=== PATIENT | female | born 1955 | race Caucasian/White ===

== ENCOUNTER → 2021-09-14 09:35 | Outpatient (BNVA) | payer MEDICARE, SELFPAY | PROVIDERS: PCP Registered Nurse; Visit Provider Surgery Vascular Surgery | DX: I65.22 Occlusion and stenosis of left carotid artery (principal) | CPT/HCPCS: 99202 ==

== ENCOUNTER → 2021-09-17 08:22 | Outpatient (BNVA) | payer MEDICARE, SELFPAY | PROVIDERS: PCP Registered Nurse; Visit Provider Internal Medicine | DX: Z01.810 Encounter for preprocedural cardiovascular examination (principal); I65.22 Occlusion and stenosis of left carotid artery; I10 Essential (primary) hypertension | CPT/HCPCS: 93005; 99202 ==

== ENCOUNTER → 2021-10-14 09:59 | Outpatient (REF) | payer MEDICARE, SELFPAY ==
--- NOTE | ~2021-10-14 | NM_ITS ---
EXERCISE MYOCARDIAL PERFUSION STUDY INDICATION: Preoperative cardiac evaluation TECHNIQUE: The patient was brought in for an exercise perfusion study on 10/14/2021. Patient performed exercise as per Dinesh protocol and was injected 25 mCi of sestamibi once target heart rate was achieved. Images were obtained using the SPECT gamma camera interlaced with the gating device. Images were obtained in supine position. Resting perfusion study was performed on 10/15/2021. Patient was administered 25 mCi of sestamibi intravenously at rest. Images were then obtained in supine position. Total DLP 78mGy-cm. Images were processed with the software and compared side to side in short axis, horizontal long axis and vertical long axis views. FINDINGS: Raw images were reviewed. The stress perfusion study showed no significant perfusion abnormality. Both uncorrected as well as CT attenuation corrected images were reviewed. The gated study shows reduced LV systolic function with calculated LVEF of 45%, but visually appears normal. LV cavity is normal in size. The gated study shows normal wall thickening and contraction of segments. Resting study shows no significant perfusion abnormality. Gating at rest reveals normal wall motion with ejection fraction at 52%. The findings are consistent with no reversible or fixed perfusion defects. MS/MS cardiolite stress test IMPRESSION: 1. Myocardial perfusion imaging study shows normal myocardial perfusion. 2. Gated LVEF is 45% during stress and 52% during rest but visually appears normal. Correlate with echocardiogram.. 3. Transient ischemic dilatation not present. EKG component of the test reported separately.
--- NOTE | 2021-10-14 10:04 | CA_ITS ---
Acquisition Time: 2021-10-14 10:16:58 Total Exercise Time: 00:05:07 Test Indications: PREOP Medications: SEE CHART Protocol: LIBORIO Max HR: 171 BPM 111% of Pred: 154 BPM Max BP: 210/100 mmHG Max Work Load: 4.6 METS Exercise stress test with exercise 5 min 7 sec of Liborio stage 1, acheving 105% MPHR and 4.3 METS, without anginal symptoms, with isolated PAC and PVC, with brisk chronotropic and hypertensive response to exercise with max BP 210/100, without EKG changes meeting criteria for ischemia at peak exercise, with nonspecfic ST abnormality noted in recovery. In recovery BP gradually improved to baseline. She had not taken her morning Lisinopril and was then given her Lisinopril 10mg po. She was recovered for 15 min and BP down to 168/94, asymptomatic. Nuclear images pending. Test reviewed with Dr Weems. Referred By: Dmitry Fenton Overread By: TERA RUIZ
== END ==
LOC: HO.CARD 09:59
PROVIDERS: Visit Provider Internal Medicine
DX: Z01.810 Encounter for preprocedural cardiovascular examination (principal)
CPT/HCPCS: 78452; 93017; A9500

== ENCOUNTER 2021-10-19 06:04 | Inpatient (IN) | payer MEDICARE, SELFPAY ==
[2021-10-13 13:16] VITALS: BP 161/82; PULSE 98; RESP 16; O2SAT 94; BMI 22.3
--- NOTE | 2021-10-13 13:28 | HO.ANESPROP2 ---
Documented by User: Ansley Rubi NP 10/13/21 14:27 HPI - Anesthesia Eval Consult details Narrative: 66yo F for Left Carotid Endarterectomy Stress test pending Cardiac clearance pending Daily ETOH: 1-2 martini's daily, never had withdrawal symptoms PMFSH Active Problems Active Problems: All Active Problems (Updated 10/13/21 @ 13:15 by Leesa Lala, RN) Left carotid stenosis (Acute) Preoperative cardiovascular examination (Acute) Essential hypertension (Acute) Past Medical History Medical History History of benign bladder tumor Hypercholesteremia Hypertension Personal history of COVID-19 Family History Family History Mother No problems noted. Father No problems noted. Family history of problems with anesthesia: No Surgical History Surgical History Hx of appendectomy Hx of colonoscopy Hx of cystoscopy History of Problems with Anesthesia: No Social History Social History Are you a primary behavioral health care manager to a significant other at home: No Do you presently have visiting nurse or other home services: No Alcohol intake: current Alcohol intake frequency: 0-2 drinks per day Patient Tobacco Use Status: Never used Tobacco Use of substances other than those prescribed or required for medical reasons: No Have you been hit, kicked, punched, or otherwise hurt by someone within the past year? If so, by whom?: No Are you DNR?: No Advance Directives: No Advance Directives Information Provided: Yes Advance Directives on File: No Recently lost weight without trying: No Patient : No Narrative Narrative: Covid 09/2021 - fully recovered No CP/SOB with >METS Meds Allergies Allergy/AdvReac Type Severity Reaction Status Date / Time ibuprofen Allergy Intermediate Hives Verified 10/19/21 06:08 Iodinated Contrast Media Allergy Mild Hives Verified 10/19/21 06:08 [IV Contrast Dye] Home Medications Medication Instructions Recorded Confirmed Last Taken Type aspirin 81 mg tablet,delayed 81 mg PO DAILY 09/14/21 10/13/21 Unknown History release (Adult Low Dose Aspirin) atorvastatin 80 mg tablet 80 mg PO BEDTIME 09/14/21 10/13/21 Unknown History cholecalciferol (vitamin D3) 25 25 mcg PO DAILY 09/14/21 10/13/21 Unknown History mcg (1,000 unit) capsule escitalopram oxalate 10 mg tablet 10 mg PO DAILY 09/14/21 10/13/21 10/19/21 05:00 History lisinopril 10 mg tablet 10 mg PO DAILY 09/14/21 10/13/21 Unknown History tumeric 100 mg-ernesto 150 mg-olive 1 cap PO DAILY 09/14/21 10/13/21 Unknown History 50 mg-oreg 150 mg-caprylate capsule Exam Exam Date and Time: October 13, 2021 1328 Height,Weight and Vital Signs: Height 5 ft 4 in Weight 58.967 kg Last Vital Signs Pulse 98 10/13/21 13:16 Resp 16 10/13/21 13:16 BP 161/82 H 10/13/21 13:16 Pulse Ox 94 10/13/21 13:16 Narrative Narrative: EKG 09/2021 sinus rhythm 69/Min; low-voltage complexes in V1, V2, 1 aVL which could be just from lead placement and body habitus.? Less likely reflect a prior infarct. Echocardiogram from [facility] with LVEF of 72%, normal diastolic function; no significant valvular pathology and otherwise unremarkable. Airway Mallampati Class: I TM Dist: >3cm Neck ROM: Full Heart: RRR Lungs: CTAB Assessment and Plan Assessment Anesthesia Assessment: Anesthesia Plan Discussed and PAT Visit Final Anesthetic Review Family History of Problems with Anesthesia: No History of Problems with Anesthesia: No Documented by User: Luis Solares 10/19/21 10:55 HPI - Anesthesia Eval Consult details Narrative: 66yo F for Left Carotid Endarterectomy Stress test unremarkable Daily ETOH: 1-2 martini's daily, never had withdrawal symptoms patient Hypertensive in pre op , patient anxious and tearful . patient reassured . [facility] Past Medical History Medical History History of benign bladder tumor Hypercholesteremia Hypertension Personal history of COVID-19 Family History Family History Mother No problems noted. Father No problems noted. Surgical History Surgical History Hx of appendectomy Hx of colonoscopy Hx of cystoscopy Social History Social History Are you a primary behavioral health care manager to a significant other at home: No Do you presently have visiting nurse or other home services: No Alcohol intake: current Alcohol intake frequency: 0-2 drinks per day Patient Tobacco Use Status: Never used Tobacco Use of substances other than those prescribed or required for medical reasons: No Have you been hit, kicked, punched, or otherwise hurt by someone within the past year? If so, by whom?: No Are you DNR?: No Advance Directives: No Advance Directives Information Provided: Yes Advance Directives on File: No Recently lost weight without trying: No Patient : No Meds Allergies Allergy/AdvReac Type Severity Reaction Status Date / Time ibuprofen Allergy Intermediate Hives Verified 10/19/21 06:08 Iodinated Contrast Media Allergy Mild Hives Verified 10/19/21 06:08 [IV Contrast Dye] Home Medications Medication Instructions Recorded Confirmed Last Taken Type aspirin 81 mg tablet,delayed 81 mg PO DAILY 09/14/21 10/13/21 Unknown History release (Adult Low Dose Aspirin) atorvastatin 80 mg tablet 80 mg PO BEDTIME 09/14/21 10/13/21 Unknown History cholecalciferol (vitamin D3) 25 25 mcg PO DAILY 09/14/21 10/13/21 Unknown History mcg (1,000 unit) capsule escitalopram oxalate 10 mg tablet 10 mg PO DAILY 09/14/21 10/13/21 10/19/21 05:00 History lisinopril 10 mg tablet 10 mg PO DAILY 09/14/21 10/13/21 Unknown History tumeric 100 mg-ernesto 150 mg-olive 1 cap PO DAILY 09/14/21 10/13/21 Unknown History 50 mg-oreg 150 mg-caprylate capsule Assessment and Plan Final Anesthetic Review NPO: Yes ASA Class: III Patient Risk: High Procedure Risk: High Anesthetic Plan Anesthetic Plan: GA Disposition: Standard PACU
[2021-10-13 14:25] LABS: Hematocrit 42.5 % (37.0-47.0); Hemoglobin 14.8 g/dl (12.0-16.0); Mean Corpuscular HGB Conc 34.8 g/dl (31.0-35.0); Mean Corpuscular Hemoglobin 33.8 pg (27.0-33.0); Mean Platelet Volume 9.7 fL (9.4-12.3); Platelet Count 214 X10*3/uL (160-400); Red Blood Count 4.38 X10*6/uL (4.20-5.50); Red Cell Distribution Width 11.7 % (11.0-16.0); White Blood Count 5.3 X10*3/uL (4.8-10.8)
[2021-10-13 14:40] LABS: Prothrombin Time 11.2 SEC (9.9-13.0)
[2021-10-13 14:42] LABS: Partial Thromboplastin Time 27.4 SEC (24.1-38.0)
[2021-10-13 14:43] LABS: Anion Gap 17 (12-20); Blood Urea Nitrogen 20 mg/dL (9-16); Calcium 9.9 mg/dL (8.4-10.2); Carbon Dioxide 31 mmol/L (22-29); Chloride 95 mmol/L (96-108); Estimated Glomerular Filt Rate > 60; Glucose Random 110 mg/dL (60-115); Potassium 3.8 mmol/L (3.3-5.1); Sodium 139 mmol/L (135-145)
[2021-10-19] VITALS (19 sets, daily range): BP systolic 106–181; BP diastolic 55–98; PULSE 79–103; RESP 12–18; TEMP 36.4–36.7; O2SAT 90–99
[2021-10-19 06:27] LABS: Hematocrit 38.8 % (37.0-47.0); Hemoglobin 13.5 g/dl (12.0-16.0); Mean Corpuscular HGB Conc 34.8 g/dl (31.0-35.0); Mean Corpuscular Hemoglobin 33.9 pg (27.0-33.0); Mean Corpuscular Volume 97.5 fL (80.0-98.0); Mean Platelet Volume 9.4 fL (9.4-12.3); Platelet Count 200 X10*3/uL (160-400); Red Blood Count 3.98 X10*6/uL (4.20-5.50); Red Cell Distribution Width 11.8 % (11.0-16.0); White Blood Count 6.6 X10*3/uL (4.8-10.8)
[2021-10-19 06:39] LABS: Prothrombin Time 11.1 SEC (9.9-13.0)
[2021-10-19 06:41] LABS: Anion Gap 18 (12-20); Blood Urea Nitrogen 15 mg/dL (9-16); Calcium 9.6 mg/dL (8.4-10.2); Carbon Dioxide 26 mmol/L (22-29); Chloride 100 mmol/L (96-108); Creatinine Clr Calc Pharmacy 59.7; Estimated Glomerular Filt Rate > 60; Glucose Random 103 mg/dL (60-115); Potassium 3.1 mmol/L (3.3-5.1); Sodium 141 mmol/L (135-145)
[2021-10-19] MEDS: Lactated Ringers 1,000 ML 100 ML IVCONT (06:43)
[2021-10-19 06:45] LABS: COVID-19 Test Negative (Negative); IDNOW Serial# 9DD0AD1C
--- NOTE | 2021-10-19 11:06 | W.PM.OPN ---
Operative Note Operative Note Date of Service: 10/19/21 Narrative: Operative note by [facility] Preoperative diagnosis: Left carotid stenosis Postoperative diagnosis: Same Procedure: Left carotid endarterectomy Surgeon:Darell Drew M.D. Senior Digital Designer: Dr. Martinez Anesthesia: General Specimens: 1 Drains: 1 Estimated blood loss: 100 mL Indications: 66-year-old female was found to have high-grade carotid stenosis confirmed by CT angiogram. She now presents for carotid endarterectomy. The patient has signed the informed consent after reviewing risks, complications, benefits, and alternatives previously discussed with the patient. The patient was given the opportunity to ask any additional questions or voice any concerns. All questions were answered to the patient's satisfaction. Procedure in detail: Patient was brought to the operating room prior to which a time-out was called for patient identification site verification left neck was prepped and draped in standard surgical fashion. Incision was carried out over the anterior border of the sternocleidomastoid. We dissected down to the carotid sheath. Facial branch of the internal jugular was then ligated. Once we were in the carotid sheath we isolated out the common carotid internal carotid and external carotid. Common carotid was isolated with a Alma Rosa tourniquet. Internal and external carotid were isolated with silastic loops. Once this was accomplished 5000 units of systemic heparin was administered. After 5 minutes of circulation time we clamped the internal common and external carotid in that order. Arteriotomy was created from the common carotid to the internal carotid. A 8 Italian Wilson shunt was then placed. Flow was reestablished. Once this was done endarterectomy was performed. All loose debris was removed using a [place]field elevator and fine pickups. This was all flushed clear. We subsequently anastomosed a xenosure patch circumferentially using a 6 0 Prolene suture. Prior to closure shunt was removed. It was flushed clear. Patch was then closed. We subsequently opened up the vessel external carotid common carotid and internal carotid in that order. Adequate hemostasis was achieved. Interrupted 7 0 Prolene sutures had to be placed. Once this was all done 7 flat Eyal-Packer drain was then placed. Incision closed in multiple layers using 2-0 Polysorb superficial layer with 3-0 poly Sorb and finally skin with 4-0 Monocryl in a running subcuticular manner. At the end the case sponge instrument counts were correct. Patient tolerated the procedure well returned to recovery with stable vitals and neurologically intact. This note is constructed using voice recognition software. While every effort has been made to ensure accuracy, scaling machine operator errors may have been included. Thank you for allowing me to participate in the care of your patient. Yours sincerely, Darell Drew MD, FACS, R.P.V.I.
--- NOTE | 2021-10-19 11:18 | PHA.MEDREC ---
Pharmacy Consult ? Medication Reconciliation RN completed. Pharmacy reviewed.
[2021-10-19 12:01] LABS: Potassium 3.2 mmol/L (3.3-5.1)
[2021-10-19] MEDS: 0.9 % Sodium Chloride 1,000 ML 80 ML IVCONT (13:12)
--- NOTE | 2021-10-19 14:22 | PC.NURSE ---
Received patient from PACU left carotid with staining on dressing which has extended and required feinforced and bulb drain emptied for 20cc bloody drainage with clot. At one point thought the drain was clotted Dr. Drew aware. Patient a&ox3 tianna sam, speech clear hand grasps equal and strong denies pain. Sandra to left radial coorilates with manual sbp 130'3-140's. Continue to monitor.
[2021-10-19] MEDS: ceFAZolin Sodium/Dextrose,Iso 2 GM/50 ML PIGGYBACK IV (14:50)
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
[2021-10-19] MEDS: Atorvastatin Calcium 80 MG TABLET PO (20:11)
[2021-10-19] MEDS: oxyCODONE HCl Immed Release 5 MG TABLET PO (20:11)
[2021-10-19 20:51] LABS: Hematocrit 32.1 % (37.0-47.0)
[2021-10-20] VITALS (17 sets, daily range): BP systolic 108–197; BP diastolic 56–99; PULSE 70–93; RESP 12–20; TEMP 36.2–36.9; O2SAT 92–96; BMI 25.5
[2021-10-20] MEDS: Metoprolol Tartrate 5 MG/5 ML VIAL IVPUSH (00:27)
[2021-10-20 00:32] LABS: MANUAL DIFF FLAG NO
[2021-10-20 00:33] LABS: Basophils Percent Auto 0.2 % (0-2); Hematocrit 30.9 % (37.0-47.0); Hemoglobin 10.5 g/dl (12.0-16.0); Imm Gran Abs Auto 0.02 X10*3/uL (0.00-0.03); Imm Gran Pct Auto 0.3 % (0.0-0.4); Lymphocytes Absolute Auto 0.5 X10*3/uL (1.2-4.9); Lymphocytes Percent Auto 8.1 % (20-40); Mean Corpuscular Hemoglobin 33.5 pg (27.0-33.0); Mean Corpuscular Volume 98.7 fL (80.0-98.0); Mean Platelet Volume 9.6 fL (9.4-12.3); Monocytes Absolute Auto 0.3 X10*3/uL (0.1-1.2); Monocytes Percent Auto 4.6 % (2-11); Neutrophils Absolute Auto 5.7 x10*3/uL (2.0-8.3); Neutrophils Percent Auto 86.8 % (45-73); Platelet Count 150 X10*3/uL (160-400); Red Blood Count 3.13 X10*6/uL (4.20-5.50); Red Cell Distribution Width 11.8 % (11.0-16.0); White Blood Count 6.6 X10*3/uL (4.8-10.8)
[2021-10-20] MEDS: oxyCODONE HCl Immed Release 5 MG TABLET PO ×2 (00:41→07:27)
[2021-10-20] MEDS: 0.9 % Sodium Chloride 1,000 ML 80 ML IVCONT (01:06)
--- NOTE | 2021-10-20 04:39 | PC.NURSE ---
Pt. noted to have saturated neck dressing at start of shift. NEGAR Carson and this RN at bedside to change and reinforce dressing. Neck continued to ooze and saturate dressing. NEGAR Carson aware and made MD Viki aware via phone, and this RN reinforced dressing multiple times per PA. Serial H+Hs ordered. At appx. 0035 on 10/20, neck dressing noted to be saturated through once again. This RN and PA at bedside to perform dressing change per . Surgical site re-dressed with Surgicell and Tranexamic Acid 500mg on saturated gauze, then wrapped with sterile gauze and cling. A-line BP noted to be elevated to systolic 160s-180s throughout, Lopressor mg IV x1 ordered with good effect. Per , infuse platelets x1. No platelets in-house at this time. Hospitals in surrounding areas notified and platelets should be coming by appx. 0700 on 10/20. Surgical dressing reassessed frequently throughout the night, no shadowing or additional bleeding or oozing noted by either this RN or PA. Will continue to monitor for additional bleeding or symptoms. At appx. 0200, pt. c/o lightheadedness and temporary visual change to this RN described as flashing lights. This RN notified PA and performed Neuro. assessment which was completely intact. Per PA, continue to monitor pt. RN offered therapeutic support to pt. and assisted pt. with deep breathing and relaxation. Pt. stated that lightheadedness and flashing lights visual change went away within moments. Will continue to monitor for returning symptoms.
[2021-10-20 05:50] LABS: MANUAL DIFF FLAG NO
[2021-10-20 05:56] LABS: Basophils Percent Auto 0.1 % (0-2); Hematocrit 28.7 % (37.0-47.0); Hemoglobin 9.7 g/dl (12.0-16.0); Imm Gran Abs Auto 0.02 X10*3/uL (0.00-0.03); Imm Gran Pct Auto 0.3 % (0.0-0.4); Lymphocytes Absolute Auto 0.9 X10*3/uL (1.2-4.9); Lymphocytes Percent Auto 11.6 % (20-40); Mean Corpuscular HGB Conc 33.8 g/dl (31.0-35.0); Mean Corpuscular Hemoglobin 33.3 pg (27.0-33.0); Mean Corpuscular Volume 98.6 fL (80.0-98.0); Mean Platelet Volume 9.7 fL (9.4-12.3); Monocytes Absolute Auto 0.6 X10*3/uL (0.1-1.2); Monocytes Percent Auto 7.9 % (2-11); Neutrophils Absolute Auto 5.9 x10*3/uL (2.0-8.3); Neutrophils Percent Auto 80.1 % (45-73); Platelet Count 164 X10*3/uL (160-400); Red Blood Count 2.91 X10*6/uL (4.20-5.50); Red Cell Distribution Width 11.8 % (11.0-16.0); White Blood Count 7.3 X10*3/uL (4.8-10.8)
[2021-10-20] MEDS: Escitalopram Oxalate 10 MG TABLET PO (06:04)
[2021-10-20] MEDS: lisinopriL 10 MG TABLET PO (06:04)
[2021-10-20 06:16] LABS: Anion Gap 10 (12-20); Blood Urea Nitrogen 9 mg/dL (9-16); Calcium 8.2 mg/dL (8.4-10.2); Carbon Dioxide 31 mmol/L (22-29); Chloride 102 mmol/L (96-108); Creatinine Clr Calc Pharmacy 79.2; Estimated Glomerular Filt Rate > 60; Glucose Random 133 mg/dL (60-115); Potassium 3.5 mmol/L (3.3-5.1); Sodium 139 mmol/L (135-145)
[2021-10-20] MEDS: 0.9 % Sodium Chloride Flush 3 ML SYRINGE IVFLUSH (07:24)
[2021-10-20] MEDS: Cholecalciferol (Vitamin D3) 25 MCG TABLET PO (09:05)
--- NOTE | 2021-10-20 09:53 | PC.NURSE ---
Addendum entered by Mary Barber RN 10/20/21 13:07: PATIENT VOIDED IN BATHROOM PRIOR TO DISCHARGE. DENIES PAIN. IVS AND TELEMONITOR REMOVED. DISCHARGE PAPERWORK REVIEWED AND OFF UNIT AT 1307. Original Note: DARLEEN REMOVED BY PETER. RENETTA DTV @ 1600. WILL CONTINUE TO MONITOR. MG DRAIN REMOVED AND DRESSING CHANGED BY SURGEON.
--- NOTE | 2021-10-20 10:17 | MHC.CM.PN ---
Met with pt to review d/c planning: Pt lives with significant other: has no services or equipment: assisted with HCP completion copy in chart: pt will call her significant other to transport home.
--- NOTE | 2021-10-20 10:50 | HO.POSTANES ---
Post Anesthesia Evaluation Post Anesthesia Evaluation Vital Signs: Vital Signs Temp Pulse Resp BP Pulse Ox 10/20/21 10:00 77 15 127/71 92 10/20/21 09:56 95 10/20/21 09:00 81 16 165/81 H 94 10/20/21 08:55 97.8 F 78 20 139/70 10/20/21 07:38 98.0 F 79 15 185/87 H 95 10/20/21 07:00 74 15 163/78 H 93 10/20/21 06:00 80 14 172/83 H 94 10/20/21 05:47 98.3 F 72 14 168/79 H 10/20/21 05:31 97.2 F 77 16 180/87 H 10/20/21 05:00 97.2 F 74 16 175/83 H 93 10/20/21 04:00 70 14 133/66 92 10/20/21 03:00 72 16 128/63 93 10/20/21 02:00 73 14 130/65 92 10/20/21 01:00 71 12 166/81 H 96 10/20/21 00:00 93 14 197/99 H 94 10/19/21 23:00 83 13 137/71 91 L Anesthesia: General Endotracheal-GETA Mental Status: Awake Pain Control: Satisfactory Nausea/Vomiting: None Hydration: Adequate Anesthesia-Related Issues: No Anes. Related Issues
--- NOTE | 2021-10-20 12:49 | P.DS_ITS ---
DS: Providers Provider Date of Service: 10/20/21 Date of admission: 10/19/21 06:04 Primary care physician: Alayna Jenkins NP DS: Diagnosis Discharge Diagnosis (1) Left carotid stenosis: Status: Acute (2) Preoperative cardiovascular examination: Status: Acute (3) Essential hypertension: Status: Acute (4) Postop carotid endarterectomy surveillance, encounter for: Status: Acute DS: Summary Hospital Course Hospital Course: Patient underwent left carotid endarterectomy on 10/19/2021. Postoperatively had no significant issues for the 1st few hours she was subsequently transferred to the ICU. Overnight she had some incisional bleeding. This was controlled with local pressure. In around platelets had to be given to the patient. She burt bsequently had a dry incision. She was tolerating regular diet. Blood pressure was within normal limits. She was subsequently discharged the following day. Condition upon discharge was stable and neurologically intact. Time Spent with Patient Time attestation: Total time spent providing and/or coordinating discharge servi vishal: Discharge coordination time: Less than 30 minutes Quality: Stroke Does the patient have a stroke diagnosis?: No Physical Exam Vital Signs: Vital Signs: Last Vital Signs Temp 98.4 F 10/20/21 11:00 Pulse 91 10/20/21 11:33 Resp 16 10/20/21 11:33 BP 108/58 L 10/20/21 11:33 Pulse Ox 95 10/20/21 11:33 BMI result Body Mass Index 25.5 DS: Data Data Completed and Pending Pending studies at discharge: Pending at discharge 10/19/21 09:42 Surgical [PTH] Routine Labs on day of discharge: Laboratory Results - last 24 hr 10/19/21 10/20/21 10/20/21 20:34 00:27 00:27 WBC RBC Hgb 11.0 L Cancelled Hct 32.1 L Cancelled MCV MCH MCHC RDW Plt Count MPV Immature Gran % (Auto) Neut % (Auto) Lymph % (Auto) [place] % (Auto) Eos % (Auto) Baso % (Auto) Lymph # (Auto) [place] # (Auto) Eos # (Auto) Baso # (Auto) Abs Immat Gran (auto) Absolute Neuts (auto) Absolute Nucleated RBC Nucleated RBC % (auto) Sodium Potassium Chloride Carbon Dioxide Anion Gap BUN Creatinine Estim Creat Clear Calc Estimated GFR Random Glucose Calcium Blood Type O Positive Antibody Screen NEGATIVE 10/20/21 10/20/21 10/20/21 00:27 05:25 05:25 WBC 6.6 7.3 RBC 3.13 L D 2.91 L Hgb 10.5 L 9.7 L Hct 30.9 L 28.7 L MCV 98.7 H 98.6 H MCH 33.5 H 33.3 H MCHC 34.0 33.8 RDW 11.8 11.8 Plt Count 150 L 164 MPV 9.6 9.7 Immature Gran % (Auto) 0.3 0.3 Neut % (Auto) 86.8 H 80.1 H Lymph % (Auto) 8.1 L 11.6 L [place] % (Auto) 4.6 7.9 Eos % (Auto) 0.0 0.0 Baso % (Auto) 0.2 0.1 Lymph # (Auto) 0.5 L 0.9 L [place] # (Auto) 0.3 0.6 Eos # (Auto) 0.0 0.0 Baso # (Auto) 0.0 0.0 Abs Immat Gran (auto) 0.02 0.02 Absolute Neuts (auto) 5.7 5.9 Absolute Nucleated RBC 0.000 0.000 Nucleated RBC % (auto) 0.0 0.0 Sodium 139 Potassium 3.5 Chloride 102 Carbon Dioxide 31 H Anion Gap 10 L BUN 9 Creatinine 0.66 Estim Creat Clear Calc 79.2 Estimated GFR > 60 Random Glucose 133 H Calcium 8.2 L D Blood Type Antibody Screen Discharge Plan Discharge Patient Disposition: Home, Self-Care Discharge Diagnosis: Status post left carotid endarterectomy Referrals: Alayna Jenkins NP [Primary Care Provider] - 1 Week Discharge Medications: New oxycodone-acetaminophen [Percocet] 5-325 mg tablet 1 tab PO Q8H PRN (Reason: pain) Qty: 10 RF: 0 Continued lisinopril 10 mg tablet 10 mg PO DAILY RF: 0 escitalopram oxalate 10 mg tablet 10 mg PO DAILY RF: 0 atorvastatin 80 mg tablet 80 mg PO BEDTIME RF: 0 cholecalciferol (vitamin D3) 25 mcg (1,000 unit) capsule 25 mcg PO DAILY RF: 0 ehjafyz-hfut-uvvdl-oreg-capryl 100 mg-150 mg- 50 mg-150 mg capsule 1 cap PO DAILY RF: 0 Held aspirin [Adult Low Dose Aspirin] 81 mg tablet,delayed release (DR/EC) 81 mg PO DAILY RF: 0 Hold Instructions: Resume on 10/26/21. Discharge Orders: Discharge Order (Routine); Ordered 10/20/21 Ordered By: Darell Drew Diet: advance to usual diet Activity on Discharge: As tolerated Stand Alone Forms: Patient Portal Discharge page Care Plan Goals: Stroke prevention Health Concerns: Carotid stenosis Plan of Treatment: Surveillance follow-up Assessment: Status post carotid endarterectomy left
--- NOTE | 2021-10-20 16:33 | PM.CCPN ---
Subjective Subjective Date of Service: 10/20/21 Interval History: 66-year-old female with hemodynamically critical left internal carotid artery stenosis and status post left carotid endarterectomy without neurologic complication or sequelae otherwise an underlying hypertensive with borderline ejection fraction by nuclear of 52% but negative for ischemia otherwise normal echo anatomy events of last night were noted we had several dressing changes that were saturated with blood and clot with continued oozing through the skin suture line so clearly there was a bleeding from the operative site the exact origin was never determined and we did communicate with the vascular surgeon and we continue to treated the locally with topical thrombotic agents and we did note with serial hemoglobins that there was a total drop from preoperative hemoglobin of 14 to 2 a hemoglobin of approximately 10 no hypotension the patient actually remained hypertensive but we held the antihypertensives until the bleeding was thoroughly controlled for several hours and then introduced her usual morning medications which she took without difficulty and the patient remained asymptomatic evaluated by both us and by the vascular surgeon and was deemed to be dischargeable Critical Care Time (minutes): 25 Physical Exam Vital Signs: Vital Signs: Last Vital Signs Temp 98.4 F 10/20/21 11:00 Pulse 91 10/20/21 11:33 Resp 16 10/20/21 11:33 BP 108/58 L 10/20/21 11:33 Pulse Ox 95 10/20/21 11:33 BMI result Body Mass Index 25.5 awake and alert and nonfocal neurologically good carotid upstroke no neck vein distension no gallops chest clear without adventitious sounds abdomen soft with no organomegaly Objective Data Labs CBC & Chem 7: 10/20/21 05:25 10/20/21 05:25 Labs: Laboratory Results - last 24 hr 10/19/21 10/20/21 10/20/21 20:34 00:27 00:27 WBC RBC Hgb 11.0 L Cancelled Hct 32.1 L Cancelled MCV MCH MCHC RDW Plt Count MPV Immature Gran % (Auto) Neut % (Auto) Lymph % (Auto) [place] % (Auto) Eos % (Auto) Baso % (Auto) Lymph # (Auto) [place] # (Auto) Eos # (Auto) Baso # (Auto) Abs Immat Gran (auto) Absolute Neuts (auto) Absolute Nucleated RBC Nucleated RBC % (auto) Sodium Potassium Chloride Carbon Dioxide Anion Gap BUN Creatinine Estim Creat Clear Calc Estimated GFR Random Glucose Calcium Blood Type O Positive Antibody Screen NEGATIVE 10/20/21 10/20/21 10/20/21 00:27 05:25 05:25 WBC 6.6 7.3 RBC 3.13 L D 2.91 L Hgb 10.5 L 9.7 L Hct 30.9 L 28.7 L MCV 98.7 H 98.6 H MCH 33.5 H 33.3 H MCHC 34.0 33.8 RDW 11.8 11.8 Plt Count 150 L 164 MPV 9.6 9.7 Immature Gran % (Auto) 0.3 0.3 Neut % (Auto) 86.8 H 80.1 H Lymph % (Auto) 8.1 L 11.6 L [place] % (Auto) 4.6 7.9 Eos % (Auto) 0.0 0.0 Baso % (Auto) 0.2 0.1 Lymph # (Auto) 0.5 L 0.9 L [place] # (Auto) 0.3 0.6 Eos # (Auto) 0.0 0.0 Baso # (Auto) 0.0 0.0 Abs Immat Gran (auto) 0.02 0.02 Absolute Neuts (auto) 5.7 5.9 Absolute Nucleated RBC 0.000 0.000 Nucleated RBC % (auto) 0.0 0.0 Sodium 139 Potassium 3.5 Chloride 102 Carbon Dioxide 31 H Anion Gap 10 L BUN 9 Creatinine 0.66 Estim Creat Clear Calc 79.2 Estimated GFR > 60 Random Glucose 133 H Calcium 8.2 L D Blood Type Antibody Screen Progress Note: A&P Assessment and plan (1) Postop carotid endarterectomy surveillance, encounter for: Status: Acute (2) Left carotid stenosis: Status: Acute (3) Preoperative cardiovascular examination: Status: Acute (4) Essential hypertension: Status: Acute Assessment and Plan: discharge instructions were given by vascular surgery Quality Stroke Does the patient have a stroke diagnosis?: No VTE Prior VTE?: No VTE Risk Level:: Medical - low VTE Device Contraindication: Treatment Not Indicated VTE Drug Contraindication: Treatment Not Indicated
== END 2021-10-20 13:07 | disposition home or self-care (01) | DRG 39 ==
LOC: HO.SSS 06:11 → HO.SSSA 06:14 → HO.ICU 11:18
PROVIDERS: Anesthesiology; Nurse Practitioner; Physician Assistant Medical; Admitting Provider Surgery Vascular Surgery; PCP Registered Nurse; Visit Provider Surgery Vascular Surgery
PROC: (CPT 35301; principal; 2021-10-19 07:30)
DX: I65.22 Occlusion and stenosis of left carotid artery (principal); I10 Essential (primary) hypertension; Z20.822 Contact with and (suspected) exposure to COVID-19; Z88.6 Allergy status to analgesic agent; Z86.16 Personal history of COVID-19; Z91.041 Radiographic dye allergy status; Z79.82 Long term (current) use of aspirin; Z79.899 Other long term (current) drug therapy
CPT/HCPCS: 36415; 80048; 84132; 85014; 85018; 85025; 85027; 85610; 85730; 86850; 86900; 86901; 87635; 88304; 88311; C1768; J0690; J1100; J1170; J2250; J2370; J2405; J3010; P9073

== ENCOUNTER → 2021-11-03 09:53 | Outpatient (BNVA) | payer MEDICARE, SELFPAY | PROVIDERS: PCP Registered Nurse; Visit Provider Surgery Vascular Surgery | DX: I65.23 Occlusion and stenosis of bilateral carotid arteries (principal); I10 Essential (primary) hypertension | CPT/HCPCS: 99212 ==

== ENCOUNTER 2022-02-03 14:07 | Outpatient (REF) | payer MEDICARE, SELFPAY ==
--- NOTE | ~2022-02-03 | US_ITS ---
EXAMINATION: US EXTRACRANIAL CAROTID DUPLEX, BILATERAL CLINICAL INFORMATION: This is a 66-year-old female with a history of left carotid endarterectomy. Carotid artery disease. COMPARISON: None TECHNIQUE: Real-time ultrasound and Doppler techniques (integrating B-mode 2-D vascular images, Doppler spectral analysis and color-flow Doppler imaging) were utilized to interrogate the extracranial carotid arteries, the vertebral arteries and proximal subclavian arteries bilaterally. The degree of stenosis is determined by criteria similar to NASCET. FINDINGS: Right Side: 1. There is moderate atherosclerotic plaque seen in the bifurcation/proximal ICA region. 2. The common carotid artery PSV proximally is 119 cm/s and distally 97 cm/s. 3. The proximal internal carotid artery velocities are 261 cm/s systolic and 72 cm/s diastolic. 4. The proximal external carotid artery PSV is 202 cm/s. There is a mild hemodynamically significant stenosis within the external carotid artery. 5. The vertebral artery shows antegrade flow. 6. The subclavian artery waveforms are normal. Left Side: 1. There is mild atherosclerotic plaque seen in the bifurcation/proximal ICA region. 2. The common carotid artery PSV proximally is 127 cm/s and distally 119 cm/s. 3. The proximal internal carotid artery velocities are 87 cm/s systolic and 29 cm/s diastolic. 4. The proximal external carotid artery PSV is 63 cm/s. 5. The vertebral artery shows antegrade flow. 6. The subclavian artery waveforms are normal. US/US carotid duplex BI IMPRESSION: 1. RIGHT: Moderate, hemodynamically significant stenosis of the proximal right internal carotid artery corresponding to a 50-79% stenosis by velocity criteria. 2. LEFT: Minimal, non-hemodynamically significant stenosis of the proximal left internal carotid artery corresponding to a 0-49% stenosis by velocity criteria.
== END 2022-02-03 14:08 | disposition home or self-care (01) ==
LOC: HO.HMGCX 14:07
PROVIDERS: Visit Provider Surgery Vascular Surgery
DX: I65.23 Occlusion and stenosis of bilateral carotid arteries (principal); I25.10 Atherosclerotic heart disease of native coronary artery without angina pectoris; Z98.890 Other specified postprocedural states
CPT/HCPCS: 93880

== ENCOUNTER → 2022-02-04 13:44 | Outpatient (BNVA) | payer MEDICARE, SELFPAY | PROVIDERS: PCP Registered Nurse; Visit Provider Surgery Vascular Surgery | DX: Z48.812 Encounter for surgical aftercare following surgery on the circulatory system (principal) | CPT/HCPCS: 99212 ==

== ENCOUNTER → 2022-02-10 11:09 | Outpatient (BNVA) | payer MEDICARE, SELFPAY | PROVIDERS: PCP Registered Nurse; Visit Provider Internal Medicine | DX: I65.23 Occlusion and stenosis of bilateral carotid arteries (principal); I10 Essential (primary) hypertension; E78.5 Hyperlipidemia, unspecified | CPT/HCPCS: 99212 ==

== ENCOUNTER 2022-05-26 10:17 | Outpatient (REF) | payer MEDICARE, SELFPAY ==
[2022-05-26 11:32] LABS: Alanine Aminotransferase 74 U/L (0-31); Albumin Level 4.7 g/dL (3.5-5.0); Alkaline Phosphatase 111 U/L (39-117); Aspartate Amino Transferase 97 U/L (5-31); Bilirubin Direct 0.5 mg/dL (0.0-0.5); Bilirubin Total 0.8 mg/dL (0.0-1.0); Cholesterol 240 mg/dL; HDL Cholesterol 106 mg/dL; LDL Cholesterol Calculated 100 mg/dl; Total Protein 7.7 g/dL (6.5-8.0); Triglycerides 171 mg/dL
== END 2022-05-26 10:18 | disposition home or self-care (01) ==
LOC: HO.LAB 10:17
PROVIDERS: Visit Provider Internal Medicine
DX: I25.10 Atherosclerotic heart disease of native coronary artery without angina pectoris (principal); E78.5 Hyperlipidemia, unspecified
CPT/HCPCS: 36415; 80061; 80076

== ENCOUNTER → 2022-05-27 14:16 | Outpatient (BNVA) | payer MEDICARE, SELFPAY | PROVIDERS: PCP Registered Nurse; Visit Provider Internal Medicine | DX: I65.23 Occlusion and stenosis of bilateral carotid arteries (principal); I10 Essential (primary) hypertension; E78.5 Hyperlipidemia, unspecified; F10.10 Alcohol abuse, uncomplicated | CPT/HCPCS: 99212 ==

== ENCOUNTER 2022-08-02 12:55 | Outpatient (REF) | payer MEDICARE, SELFPAY ==
--- NOTE | ~2022-08-02 | US_ITS ---
EXAMINATION: US EXTRACRANIAL CAROTID DUPLEX, BILATERAL CLINICAL INFORMATION: Status post left carotid endarterectomy COMPARISON: Carotid duplex on 02/03/2022 TECHNIQUE: Real-time ultrasound and Doppler techniques (integrating B-mode 2-D vascular images, Doppler spectral analysis and color-flow Doppler imaging) were utilized to interrogate the extracranial carotid arteries, the vertebral arteries and proximal subclavian arteries bilaterally. The degree of stenosis is determined by criteria similar to NASCET. FINDINGS: Right Side: 1. There is moderate atherosclerotic plaque seen in the bifurcation/proximal ICA region. 2. The common carotid artery PSV proximally is 122 cm/s and distally 98 cm/s. 3. The proximal internal carotid artery velocities are 245 cm/s systolic and 66 cm/s diastolic. 4. The proximal external carotid artery PSV is 210 cm/s. 5. The vertebral artery shows antegrade flow. 6. The subclavian artery waveforms are normal. Left Side: 1. There is no significant atherosclerotic plaque seen in the bifurcation/proximal ICA region. 2. The common carotid artery PSV proximally is 130 cm/s and distally 109 cm/s. 3. The proximal internal carotid artery velocities are 110 cm/s systolic and 26 cm/s diastolic. 4. The proximal external carotid artery PSV is 173 cm/s. 5. The vertebral artery shows antegrade flow. 6. The subclavian artery waveforms are normal. US/US carotid duplex BI IMPRESSION: 1. RIGHT: Moderate, hemodynamically significant stenosis of the proximal right internal carotid artery corresponding to a 50-79% stenosis by velocity criteria. 2. LEFT: Normal left internal carotid artery post endarterectomy without atherosclerotic plaque or hemodynamically significant stenosis. 3. Improvement in disease of the left compared to the prior exam on 02/03/2022.
== END 2022-08-02 12:56 | disposition home or self-care (01) ==
LOC: HO.HMGCX 12:55
PROVIDERS: Absent Provider Internal Medicine; PCP Registered Nurse; Visit Provider Surgery Vascular Surgery
DX: I65.23 Occlusion and stenosis of bilateral carotid arteries (principal)
CPT/HCPCS: 93880

== ENCOUNTER 2022-08-04 12:05 | Outpatient (REF) | payer MEDICARE, SELFPAY ==
[2022-08-04 14:23] LABS: Alanine Aminotransferase 74 U/L (0-31); Albumin Level 4.5 g/dL (3.5-5.0); Alkaline Phosphatase 114 U/L (39-117); Aspartate Amino Transferase 94 U/L (5-31); Bilirubin Direct 0.5 mg/dL (0.0-0.5); Cholesterol 194 mg/dL; HDL Cholesterol 79 mg/dL; LDL Cholesterol Calculated 98 mg/dl; Total Protein 7.4 g/dL (6.5-8.0); Triglycerides 89 mg/dL
== END 2022-08-04 12:06 | disposition home or self-care (01) ==
LOC: HO.HMGCLDS 12:05
PROVIDERS: PCP Registered Nurse; Visit Provider Internal Medicine
DX: E78.5 Hyperlipidemia, unspecified (principal)
CPT/HCPCS: 36415; 80061; 80076

== ENCOUNTER → 2022-08-10 13:50 | Outpatient (BNVA) | payer MEDICARE, SELFPAY | PROVIDERS: PCP Registered Nurse; Visit Provider Internal Medicine | DX: I65.23 Occlusion and stenosis of bilateral carotid arteries (principal); I10 Essential (primary) hypertension; E78.5 Hyperlipidemia, unspecified; F10.10 Alcohol abuse, uncomplicated | CPT/HCPCS: 93005; 99212 ==

== ENCOUNTER → 2023-02-09 12:43 | Outpatient (BNVA) | payer MEDICARE, SELFPAY | PROVIDERS: PCP Registered Nurse; Referring Provider Registered Nurse; Visit Provider Internal Medicine | DX: I65.23 Occlusion and stenosis of bilateral carotid arteries (principal); I10 Essential (primary) hypertension; E78.5 Hyperlipidemia, unspecified; F10.10 Alcohol abuse, uncomplicated; Z79.82 Long term (current) use of aspirin; Z79.899 Other long term (current) drug therapy | CPT/HCPCS: 99212 ==

== ENCOUNTER 2023-04-11 10:15 | Outpatient (REF) | payer MEDICARE, SELFPAY ==
--- NOTE | ~2023-04-11 | CT_ITS ---
CT ANGIOGRAM NECK CLINICAL INFORMATION: Occlusion and stenosis of the bilateral carotid arteries. COMPARISON: Carotid ultrasound 08/02/2022. TECHNIQUE: A CTA of the neck is obtained following the administration of 70 mL of Omnipaque 350 intravenous contrast without complication. Vascular post-processing, including 2-dimensional and 3-dimensional reformatted images were created and reviewed on an independent workstation under concurrent physician supervision. Stenoses are graded per criteria similar to NASCET. This CT examination was performed using dose optimization techniques as appropriate, variously including the following: *Automated exposure control *Adjustment of mA and/or kV according to patient size (this includes techniques or standardized protocols for targeted exams where dose is matched to indication/reason for exam; i.e. extremities or head) *Use of iterative reconstruction technique FINDINGS: Limited motion degraded CTA of the neck. There is a 3 great vessel branch configuration off of the aortic arch. The great vessel origins are widely patent. Left vertebral artery is dominant and the cervical vertebral arteries are widely patent throughout their course. The common carotid arteries are widely patent. Extensive calcific and lipid rich atherosclerotic plaque result in a 60% stenosis of the proximal right surgical internal carotid artery. Left carotid bifurcation is widely patent. The partially imaged intracranial arterial vasculature is widely patent. Imaged upper lungs are clear. No significant soft tissue findings within the neck. There is multilevel cervical spondylosis. Partially imaged chronic lacunar infarct within the right cerebellum. CT/CT angio neck IMPRESSION: Extensive calcific and lipid rich atherosclerotic plaque result in a 60% stenosis of the proximal right surgical internal carotid artery. No additional significant arterial stenoses in the neck with assessment of the mid to distal cervical arterial vasculature limited by significant motion artifact.
== END 2023-04-11 10:16 | disposition home or self-care (01) ==
LOC: HO.CT 10:15
PROVIDERS: PCP Registered Nurse; Visit Provider Surgery Vascular Surgery
DX: I65.23 Occlusion and stenosis of bilateral carotid arteries (principal)
CPT/HCPCS: 70498; Q9967

== ENCOUNTER 2023-04-26 14:50 | Outpatient (AMB) | payer MEDICARE, SELFPAY ==
--- NOTE | 2023-04-26 14:52 | A.OFFVIS_ITS ---
Intake Vital Signs 04/26/23 14:54 04/26/23 15:03 Height 5 ft 4 in Weight 137 lb BMI 23.5 BP 126/58 L 130/70 Blood Pressure Location Rt brachial Lt brachial Position Sitting Sitting Intake Visit Reasons: Follow Up 04/11 CTA Intake Note: 6 mo follow up s/p CTA Neck 04/11/23. Left carotid endarterectomy 10/19/2021. pt states Left eye blurred vision, states it has been like that for a while but getting worse. Accompanied by: Spouse Allergies ibuprofen Allergy (Intermediate, Verified 04/26/23 15:00) Hives Iodinated Contrast Media [IV Contrast Dye] Allergy (Mild, Verified 04/26/23 15:00) Hives HPI Follow Up 04/11 CTA HPI Details Very pleasant 67-year-old female presents for routine carotid follow- up. She had had a prior left carotid endarterectomy back in October of 2021. We have been following her for the right side. She had undergone ultrasound which was concerning. She now presents for CT angiogram follow-up. [facility] Medical History History of benign bladder tumor Hypercholesteremia Hypertension Personal history of COVID-19 Surgical History History of left-sided carotid endarterectomy (10/19/21) Hx of appendectomy Hx of colonoscopy Hx of cystoscopy Family History Mother No problems noted. Father No problems noted. Social History Household Members: Significant Other Housing: House Are you a primary plant health care technician to a significant other at home: No Do you presently have visiting nurse or other home services: No Alcohol intake: current Alcohol intake frequency: a few times a week Patient Tobacco Use Status: Never used Tobacco Second Hand Smoke Exposure: No service: No Current occupational status: employed Review of Systems Const All systems reviewed & are unremarkable except as noted in HPI and below Reports no additional complaints ENT Reports Normal hearing present Card Denies chest pain, Denies chest pain at rest, Denies chest pain with activity and Denies pedal edema Resp Denies cough GI Denies abdominal pain Musc Denies abnormal gait, Denies muscle cramps and Denies radiating pain into limb Skin/Breast Denies skin ulcer and Denies wounds Neuro Reports Normal hearing present and Denies abnormal gait Psych Reports no additional complaints Physical Exam Vital Signs: Last Vital Signs BP 130/70 04/26/23 15:03 BMI result Body Mass Index 23.5 Const General: cooperative, healthy appearing and comfortable Orientation/consciousness: oriented to person, oriented to place and oriented to time HEENT Head: Yes normal to inspection Neck Neck: Yes normal visual inspection Carotids: no bruits Chest Chest palpation & inspection: normal inspection of the chest Resp Effort & Inspection: normal respiratory effort and able to speak in complete sentences Auscultation: clear to auscultation bilaterally, no crackles, no rales, no rhonchi and no wheezes Cardio Rate: regular rate Rhythm: regular rhythm Heart sounds: S1 normal heart sound present and S2 normal heart sound present Bruits: no carotid bruits Peripheral pulses: Peripheral pulses 2+ throughout GI Inspection: Yes normal to inspection Skin Wounds: no wounds Hair: normal Neuro General: oriented to person, oriented to place and oriented to time Cranial nerves: Yes CN's II-XII intact bilaterally and Yes Normal hearing present Cognition (Neuro): normal cognition Motor exam (neuro): 5/5 motor strength present throughout Extrem Other: venous exam: No significant superficial varicosities or spider telangiectasias, minimal edema General: No clubbing, No cyanosis and No edema Psych Appearance: grossly normal Mental Status: mental status grossly normal Speech and movement: Normal speech and movement present Results Reviewed Results Reviewed: CT angiogram dated 04/11/2023 written report and images were reviewed. It demonstrates extensive calcified and lipid rich atherosclerotic plaque on the right side of greater than 60% Assessment & Plan Assessment & Plan (1) Carotid stenosis, right: Code(s): I65.21 - Occlusion and stenosis of right carotid artery Plan: In short patient has high-grade right carotid stenosis. She will require right carotid endarterectomy. Risks benefits complications of the operation were discussed in detail with the patient. This included but was not limited to bleeding infection stroke and . She understood and would like to move forward. She will require cardiac risk stratification, although she has had a very recent workup by Cardiology and has a reported ejection fraction of 72%. We will schedule her as soon as possible. Thank you for allowing us to assist in her care. If there are any questions or concerns please do not hesitate to contact us. Coding Level of Care Code Est Pt Level 4 (01078) Diagnoses Carotid stenosis, right I65.21
[2023-04-26 14:54] VITALS: BP 126/58; BMI 23.5
[2023-04-26 15:03] VITALS: BP 130/70
== END 2023-04-26 15:20 | disposition home or self-care (01) ==
PROVIDERS: PCP Internal Medicine; Visit Provider Surgery Vascular Surgery
DX: I65.21 Occlusion and stenosis of right carotid artery (principal)
CPT/HCPCS: 99214

== ENCOUNTER → 2023-04-26 14:50 | Outpatient (BNVA) | payer MEDICARE, SELFPAY | PROVIDERS: PCP Registered Nurse; Visit Provider Surgery Vascular Surgery | DX: I65.21 Occlusion and stenosis of right carotid artery (principal) | CPT/HCPCS: 99212 ==

== ENCOUNTER → 2023-05-02 14:14 | Outpatient (BNV) | payer MEDICARE, SELFPAY | PROVIDERS: Admitting Provider Surgery Vascular Surgery; PCP Internal Medicine; Visit Provider Internal Medicine Cardiovascular Disease | DX: Z01.818 Encounter for other preprocedural examination (principal) | CPT/HCPCS: 93010 ==

== ENCOUNTER 2023-05-09 06:07 | Inpatient (IN) | payer MEDICARE, SELFPAY ==
--- NOTE | 2023-05-02 | ECG_ITS ---
Test Reason : PRE OP Blood Pressure : / mmHG Vent. Rate : 105 BPM Atrial Rate : 105 BPM P-R Int : 154 ms QRS Dur : 070 ms QT Int : 348 ms P-R-T Axes : 069 -12 054 degrees QTc Int : 459 ms Sinus tachycardia Possible Left atrial enlargement Borderline ECG No previous ECGs available Referred By: Ansley Rubi Electronically Signed By:RONNY MANLEY MD
[2023-05-02 13:15] VITALS: BP 120/70; PULSE 111; RESP 16; O2SAT 98; BMI 21.8
--- NOTE | 2023-05-02 13:35 | P.CONAN_ITS ---
Documented by User: Ansley Rubi NP 05/03/23 11:55 HPI - Anesthesia Eval Consult details Narrative: 67yo F for Right Carotid Endarterectomy, 05/09/23 Left side done 10/2021 without anesthesia issue Cardiac optimized Recently started on chlorthalidone by pcp No recentl illness No CP/SOB with kayaking 1-2 martini's a few times a week PMFSH Active Problems Active Problems: All Active Problems (Updated 04/27/23 @ 10:49 by Darell Drew MD) Carotid stenosis, right (Acute) Excessive drinking alcohol (Acute) Other and unspecified hyperlipidemia (Acute) Bilateral carotid artery stenosis (Acute) Left carotid stenosis (Acute) Essential hypertension (Acute) Past Medical History Medical History Colitis History of benign bladder tumor History of diverticulitis Hypercholesteremia Hypertension Personal history of COVID-19 Family History Family History Mother No problems noted. Father No problems noted. Family history of problems with anesthesia: No Surgical History Surgical History History of left-sided carotid endarterectomy (10/19/21) Hx of appendectomy Hx of colonoscopy Hx of cystoscopy History of Problems with Anesthesia: No Social History Social History (Updated 05/02/23 @ 14:08 by Leesa Lala RN) Household Members: Significant Other Housing: House Are you a primary nonfarm animal caretaker to a significant other at home: No Do you presently have visiting nurse or other home services: No Alcohol intake: current Alcohol intake frequency: a few times a week Patient Tobacco Use Status: Never used Tobacco Second Hand Smoke Exposure: No Use of substances other than those prescribed or required for medical reasons: No Have you been hit, kicked, punched, or otherwise hurt by someone within the past year? If so, by whom?: No Are you DNR?: No Advance Directives: No Advance Directives Information Provided: Yes Advance Directives on File: No Recently lost weight without trying: No Nutrition Risks: No Nutritional Risk Poor oral hygiene: No service: No Current occupational status: employed Meds Allergies Allergy/AdvReac Type Severity Reaction Status Date / Time ibuprofen Allergy Severe Hives Verified 05/09/23 06:17 Iodinated Contrast Media Allergy Severe Hives Verified 05/09/23 06:17 [IV Contrast Dye] Home Medications Medication Instructions Recorded Confirmed Last Taken Type aspirin 81 mg tablet,delayed 81 mg PO DAILY 09/14/21 05/02/23 05/01/23 History release (Adult Low Dose Aspirin) cholecalciferol (vitamin D3) 25 25 mcg PO DAILY 09/14/21 05/02/23 05/08/23 History mcg (1,000 unit) capsule lisinopril 20 mg tablet 20 mg PO DAILY 02/10/22 05/02/23 05/08/23 History chlorthalidone 25 mg tablet 25 mg PO DAILY 04/26/23 05/02/23 05/08/23 History Exam Exam Date and Time: May 02, [id number] Height,Weight and Vital Signs: Height 5 ft 4 in Weight 57.606 kg Last Vital Signs Pulse 111 H 05/02/23 13:15 Resp 16 05/02/23 13:15 BP 120/70 05/02/23 13:15 Pulse Ox 98 05/02/23 13:15 Pertinent Lab Results Pertinent Lab Results: Lab Results 05/02/23 05/02/23 05/02/23 Range/Units 14:06 14:18 14:18 WBC 9.7 (4.8-10.8) X10*3/uL RBC 4.11 L D (4.20-5.50) X10*6/uL Hgb 14.0 D (12.0-16.0) g/dl Hct 41.9 D (37.0-47.0) % MCV 101.9 H (80.0-98.0) fL MCH 34.1 H (27.0-33.0) pg MCHC 33.4 (31.0-35.0) g/dl RDW 12.2 (11.0-16.0) % Plt Count 161 (160-400) X10*3/uL MPV 9.7 (9.4-12.3) fL Absolute Nucleated RBC 0.000 (0.0-0.012) X10*3/uL Nucleated RBC % (auto) 0.0 (0.0-0.2) /100WBC PT 10.1 (10.0-13.1) SEC INR 0.9 (0.9-1.1) APTT 29.8 (26.0-36.4) SEC Sodium (135-145) mmol/L Potassium (3.3-5.1) mmol/L Chloride (96-108) mmol/L Carbon Dioxide (22-29) mmol/L Anion Gap (12-20) BUN (9-16) mg/dL Creatinine (0.5-1.4) mg/dL Estim Creat Clear Calc Estimated GFR Random Glucose (60-115) mg/dL Calcium (8.4-10.2) mg/dL Blood Type O Positive Antibody Screen NEGATIVE 05/02/23 Range/Units 14:18 WBC (4.8-10.8) X10*3/uL RBC (4.20-5.50) X10*6/uL Hgb (12.0-16.0) g/dl Hct (37.0-47.0) % MCV (80.0-98.0) fL MCH (27.0-33.0) pg MCHC (31.0-35.0) g/dl RDW (11.0-16.0) % Plt Count (160-400) X10*3/uL MPV (9.4-12.3) fL Absolute Nucleated RBC (0.0-0.012) X10*3/uL Nucleated RBC % (auto) (0.0-0.2) /100WBC PT (10.0-13.1) SEC INR (0.9-1.1) APTT (26.0-36.4) SEC Sodium 139 (135-145) mmol/L Potassium 3.9 (3.3-5.1) mmol/L Chloride 95 L (96-108) mmol/L Carbon Dioxide 21 L (22-29) mmol/L Anion Gap 27 H (12-20) BUN 59 H (9-16) mg/dL Creatinine 1.65 H (0.5-1.4) mg/dL Estim Creat Clear Calc 28.6 Estimated GFR 31 Random Glucose 73 (60-115) mg/dL Calcium 10.4 H D (8.4-10.2) mg/dL Blood Type Antibody Screen Narrative Narrative: EKG 04/2023 Vent. Rate : 105 BPM ? ? Atrial Rate : 105 BPM ?? P-R Int : 154 ms? QRS Dur : 070 ms ? ? QT Int : 348 ms ? ? ? P-R-T Axes : 069 -12 054 degrees ?? QTc Int : 459 ms ? Sinus tachycardia Possible Left atrial enlargement Borderline ECG No previous ECGs available ECHO 2020 LV is nml in size and thickness. LVEF is nml with EF 72%. No signif LV wall motion abn. Nml RV size and function. There is no evidence PFO by dopplar. NM cardiolite stress test 10/2021 IMPRESSION: ? 1.? Myocardial perfusion imaging study shows normal myocardial perfusion. 2.? Gated LVEF is 45% during stress and 52% during rest but visually appears normal. Correlate with echocardiogram.. 3. Transient ischemic dilatation not present. ? EKG component of the test reported separately. CT angio neck 04/2023 IMPRESSION: Extensive calcific and lipid rich atherosclerotic plaque result in a 60% stenosis of the proximal right surgical internal carotid artery. No additional significant arterial stenoses in the neck with assessment of the mid to distal cervical arterial vasculature limited by significant motion artifact. ? Echocardiogram from [facility] with LVEF of 72%, normal diastolic function; no significant valvular pathology and otherwise unremarkable. Airway Mallampati Class: I TM Dist: >3cm Neck ROM: Limited Heart: RRR Lungs: CTAB Assessment and Plan Assessment Anesthesia Assessment: Anesthesia Plan Discussed and PAT Visit Final Anesthetic Review Family History of Problems with Anesthesia: No History of Problems with Anesthesia: No Documented by User: Christopher Silver MD 05/09/23 07:28 [facility] Past Medical History Medical History Colitis History of benign bladder tumor History of diverticulitis Hypercholesteremia Hypertension Personal history of COVID-19 Family History Family History Mother No problems noted. Father No problems noted. Surgical History Surgical History History of left-sided carotid endarterectomy (10/19/21) Hx of appendectomy Hx of colonoscopy Hx of cystoscopy Social History Social History (Updated 05/02/23 @ 14:08 by Leesa Lala RN) Household Members: Significant Other Housing: House Are you a primary nonfarm animal caretaker to a significant other at home: No Do you presently have visiting nurse or other home services: No Alcohol intake: current Alcohol intake frequency: a few times a week Patient Tobacco Use Status: Never used Tobacco Second Hand Smoke Exposure: No Use of substances other than those prescribed or required for medical reasons: No Have you been hit, kicked, punched, or otherwise hurt by someone within the past year? If so, by whom?: No Are you DNR?: No Advance Directives: No Advance Directives Information Provided: Yes Advance Directives on File: No Recently lost weight without trying: No Nutrition Risks: No Nutritional Risk Poor oral hygiene: No service: No Current occupational status: employed Meds Allergies Allergy/AdvReac Type Severity Reaction Status Date / Time ibuprofen Allergy Severe Hives Verified 05/09/23 06:17 Iodinated Contrast Media Allergy Severe Hives Verified 05/09/23 06:17 [IV Contrast Dye] Home Medications Medication Instructions Recorded Confirmed Last Taken Type aspirin 81 mg tablet,delayed 81 mg PO DAILY 09/14/21 05/02/23 05/01/23 History release (Adult Low Dose Aspirin) cholecalciferol (vitamin D3) 25 25 mcg PO DAILY 09/14/21 05/02/23 05/08/23 History mcg (1,000 unit) capsule lisinopril 20 mg tablet 20 mg PO DAILY 02/10/22 05/02/23 05/08/23 History chlorthalidone 25 mg tablet 25 mg PO DAILY 04/26/23 05/02/23 05/08/23 History Exam Airway Neck ROM: Full Heart: RRR. See above. Assessment and Plan Assessment Anesthesia Assessment: Chart Reviewed Final Anesthetic Review NPO: Yes ASA Class: III Final Preanesthetic Review: No Changes in Pt Med Stat, Meds/Allgs Chart Reviewed, Consent Obtained/Reviewed and Anes Risks/Benef Reviewed Patient Risk: High Procedure Risk: High Anesthetic Plan Anesthetic Plan: GA and Agree w/ Assess. and Plan Disposition: Standard PACU and Inp. Admit - ICU
[2023-05-02 15:07] LABS: Hematocrit 41.9 % (37.0-47.0); Mean Corpuscular HGB Conc 33.4 g/dl (31.0-35.0); Mean Corpuscular Hemoglobin 34.1 pg (27.0-33.0); Mean Corpuscular Volume 101.9 fL (80.0-98.0); Mean Platelet Volume 9.7 fL (9.4-12.3); Platelet Count 161 X10*3/uL (160-400); Red Blood Count 4.11 X10*6/uL (4.20-5.50); Red Cell Distribution Width 12.2 % (11.0-16.0); White Blood Count 9.7 X10*3/uL (4.8-10.8)
[2023-05-02 15:12] LABS: INTERNATIONAL NORM RATIO 0.9 (0.9-1.1); Prothrombin Time 10.1 SEC (10.0-13.1)
[2023-05-02 15:15] LABS: Partial Thromboplastin Time 29.8 SEC (26.0-36.4)
[2023-05-02 16:49] LABS: Anion Gap 27 (12-20); Blood Urea Nitrogen 59 mg/dL (9-16); Calcium 10.4 mg/dL (8.4-10.2); Carbon Dioxide 21 mmol/L (22-29); Chloride 95 mmol/L (96-108); Creatinine Clr Calc Pharmacy 28.6; Estimated Glomerular Filt Rate 31; Glucose Random 73 mg/dL (60-115); Potassium 3.9 mmol/L (3.3-5.1); Sodium 139 mmol/L (135-145)
[2023-05-09] VITALS (22 sets, daily range): BP systolic 91–170; BP diastolic 49–98; PULSE 78–104; RESP 12–20; TEMP 36.1–36.8; O2SAT 91–100
[2023-05-09 06:52] LABS: Hematocrit 40.9 % (37.0-47.0); Hemoglobin 13.9 g/dl (12.0-16.0); Mean Corpuscular Hemoglobin 34.4 pg (27.0-33.0); Mean Corpuscular Volume 101.2 fL (80.0-98.0); Mean Platelet Volume 10.1 fL (9.4-12.3); Platelet Count 217 X10*3/uL (160-400); Red Blood Count 4.04 X10*6/uL (4.20-5.50); Red Cell Distribution Width 11.6 % (11.0-16.0)
[2023-05-09] MEDS: Lactated Ringers 1,000 ML 100 ML IVCONT (06:59)
--- NOTE | 2023-05-09 07:05 | PHA.MEDREC ---
Pharmacy Consult ? Medication Reconciliation Pharmacy has completed the medication reconciliation.Pharmacy has reviewed med rec done by nursing.
[2023-05-09 07:07] LABS: Anion Gap 26 (12-20); Blood Urea Nitrogen 33 mg/dL (9-16); Calcium 11.1 mg/dL (8.4-10.2); Carbon Dioxide 22 mmol/L (22-29); Chloride 95 mmol/L (96-108); Creatinine Clr Calc Pharmacy 33.4; Estimated Glomerular Filt Rate 37; Glucose Random 109 mg/dL (60-115); Potassium 3.5 mmol/L (3.3-5.1); Sodium 139 mmol/L (135-145)
[2023-05-09 07:08] LABS: INTERNATIONAL NORM RATIO 0.9 (0.9-1.1); Prothrombin Time 10.7 SEC (11.1-13.3)
[2023-05-09 07:11] LABS: Partial Thromboplastin Time 22.7 SEC (26.0-36.4)
--- NOTE | 2023-05-09 10:08 | MHC.SHP ---
Pre-Procedural Eval Section A Date of Service: 05/09/23 The patient is an INPATIENT: No Changes since office visit: Yes Patient answered all questions The History & Physical has been completed within 30 days and I have reviewed it.: Yes Section B Chief Complaint: Postop Allergies: Allergies Allergy/AdvReac Type Severity Reaction Status Date / Time ibuprofen Allergy Severe Hives Verified 05/09/23 06:17 Iodinated Contrast Media Allergy Severe Hives Verified 05/09/23 06:17 [IV Contrast Dye] Plan I have reviewed the history and physical and performed a pertinent physical examination on my patient. No changes have occurred unless specified. Time Spent With Patient Time: Total time managing care of this patient today ____ minutes.
--- NOTE | 2023-05-09 10:09 | W.PM.OPN ---
Operative Note Operative Note Date of Service: 05/09/23 Narrative: Operative note by [facility] Preoperative diagnosis:1. Right Carotid stenosis Postoperative diagnosis: Same Procedure: Right Carotid endarterectomy with patch angioplasty Surgeon:Darell Drew M.D. Assistant Director: Dr. Salinas Anesthesia: General Specimens: 1 Drains: 0 Estimated blood loss: 100 mL Indications: Very pleasant 67-year-old female prior history of left carotid endarterectomy on surveillance follow-up was found to have high-grade right carotid stenosis. She now presents for elective endarterectomy of the right carotid. The patient has signed the informed consent after reviewing risks, complications, benefits, and alternatives previously discussed with the patient. The patient was given the opportunity to ask any additional questions or voice any concerns. All questions were answered to the patient's satisfaction. Procedure in detail: Patient was taken to the operating room and placed in a supine position and prepped and draped in sterile manner with ChloraPrep. Longitudinal incision was made along the anterior border of the right sternocleidomastoid carried down through the subcutaneous fat and fascia. Hemostasis was obtained with electrocautery. The platysma muscle was then divided. The carotid sheath was identified in open. The vagus nerve, Ancef cervicalis, and hypoglossal nerves were identified and avoided. The common internal and external carotids were then freed from the surrounding tissue. At this point, 5000 units of heparin was administered and allowed to circulate for 5 minutes time to take effect. The internal, common, external carotids were clamped in that order. Once this was accomplished, we proceeded with the procedure. The carotid bulb was opened with an 11 blade and extended with Godwin scissors through the very tight lesion into normal internal carotid artery. This was then extended down into the common carotid artery. We then placed a Wilson shunt. Then the plaque was sharply excised proximally and an eversion endarterectomy was performed successfully at the external. The plaque tapered nicely on to the internal and no tacking sutures were necessary. Heparinized saline was injected and no evidence of flapping or other debris was noted. The remaining carotid was examined, which showed no debris or flaps present. At this point a XenoSure patch was brought on to the field. This was anastomosed to the artery using a 6 0 Prolene in a running fashion. Once approximately 4/5 of the patch was sewn in the shunt was then removed. Prior to the last stitch the internal carotid was back bled through this. Heparinized saline was instilled into the carotid. The last stitch was tied. Hemostasis was excellent. The internal carotid was gently occluded while while of the external and internal were open in that order. Finally the internal was then opened and flow was restored to the entire system. Hemostasis was achieved with interrupted 7-0 Prolene sutures. The wound was irrigated thoroughly. Deep layer was reapproximated using a 2-0 poly Sorb and finally the superficial layer with a 3-0 Polysorb. The skin was closed in a subcuticular manner. The patient awoke and neurologic status was checked and appeared to be intact. Sponge, needle and instrument counts were correct. The patient tolerated the procedure well. Returned to recovery with stable vitals. This note is constructed using voice recognition software. While every effort has been made to ensure accuracy, special education para professional errors may have been included. Thank you for allowing me to participate in the care of your patient. Yours sincerely, Darell Drew MD, FACS, R.P.V.I.
[2023-05-09] MEDS: 0.9 % Sodium Chloride 1,000 ML 80 ML IVCONT ×2 (14:02→23:30)
[2023-05-09] MEDS: ceFAZolin Sodium/Dextrose,Iso 2 GM/50 ML PIGGYBACK IV (14:03)
[2023-05-09] MEDS: Morphine Sulfate 2 MG/ML CARTRIDGE IVPUSH (14:20)
[2023-05-09] MEDS: ondansetron HCL 4 MG/2 ML VIAL IVPUSH (14:20)
[2023-05-09] MEDS: Midazolam HCl/PF 2 MG/2 ML VIAL IVPUSH (14:27)
--- NOTE | 2023-05-09 14:42 | W.PM.CCCN ---
History of Present Illness Data of Consult Service Date: 05/09/23 Requesting physician: Darell Drew Primary Care Provider: Surya Amos MD [facility] Reason for consult: status post carotid endarterectomy 67-year-old female with a history of vasculopathy who had a previous left carotid endarterectomy and through ordinary surveillance with developed hemodynamically critical stenosis of the right internal carotid artery and underwent successful endarterectomy bedside echo defining normal left ventricular dimension and systolic function and the same for the right ventricle with no primary valve or pericardial disease and she had an outpatient exercise nuclear stress test only achieved 4.5 Mets and developed acute hypertension with systolic pressures greater than 200 and was in a somewhat symptom limited and itchy with 100% of age predicted heart rate so clearly she just lacks physical training affect but it was negative for any kind of perfusion abnormality Review of Systems Review of Systems: Yes all other systems are reviewed and are negative [facility] Past Medical History Medical History Colitis History of benign bladder tumor History of diverticulitis Hypercholesteremia Hypertension Personal history of COVID-19 Family History Family History Mother No problems noted. Father No problems noted. Surgical History Surgical History History of left-sided carotid endarterectomy (10/19/21) Hx of appendectomy Hx of colonoscopy Hx of cystoscopy Social History Social History (Updated 05/02/23 @ 14:08 by Leesa Lala RN) Household Members: Spouse Housing: House Are you a primary nonfarm animal caretaker to a significant other at home: No Do you presently have visiting nurse or other home services: No Alcohol intake: current Alcohol intake frequency: a few times a week Patient Tobacco Use Status: Never used Tobacco Second Hand Smoke Exposure: No Use of substances other than those prescribed or required for medical reasons: No Currently Displaying Signs/Symptoms of Drug Intoxication Withdrawal: No Have you been hit, kicked, punched, or otherwise hurt by someone within the past year? If so, by whom?: No Do you feel safe in your current relationship?: Yes Is there a partner from a previous relationship who is making you feel unsafe now?: No Are you made to feel afraid or neglected: No Spiritual Healthcare Practices: none per patient Buddhism Healthcare Practices: none per patient Cultural Healthcare Practices: none per patient Are you DNR?: No Advance Directives: No Advance Directives Information Provided: Yes Advance Directives on File: No Do you have thoughts of harming others: None Do you have a plan to hurt others: No Plan Recently lost weight without trying: Yes How much weight loss: 2-13 pounds Eating poorly because of decreased appetite: Yes Nutrition screen score: 4 Nutrition Risks: No Nutritional Risk Patient : No : No Poor oral hygiene: No service: No Current occupational status: employed Meds Allergies Allergy/AdvReac Type Severity Reaction Status Date / Time ibuprofen Allergy Severe Hives Verified 05/09/23 06:17 Iodinated Contrast Media Allergy Severe Hives Verified 05/09/23 06:17 [IV Contrast Dye] Active Medications: Current Medications Acetaminophen (Acetaminophen 325 Mg Tablet) 650 mg PO Q6H PRN PRN Reason: Pain, Mild (Pain Scale 1-3) Aspirin (Aspirin Enteric Coated 81 Mg Tablet.Dr) 81 mg PO DAILY [facility] Hydrochlorothiazide (Hydrochlorothiazide 25 Mg Tablet) 25 mg PO DAILY [facility] Sodium Chloride (Ns) 1,000 mls @ 80 mls/hr IVCONT .[id number] [facility] Last Admin: 05/09/23 14:02 Dose: 80 mls/hr Lisinopril (Lisinopril 20 Mg Tablet) 20 mg PO DAILY [facility]; Protocol Morphine Sulfate (Morphine Sulfate 2 Mg/Ml Cartridge) 2 mg IVPUSH Q4H PRN; Protocol PRN Reason: Pain, Severe (Pain Scale 7-10) Last Admin: 05/09/23 14:20 Dose: 2 mg Oxycodone HCl (Oxycodone Hcl Immed Release 5 Mg Tablet) 5 mg PO Q4H PRN PRN Reason: Pain, Moderate(Pain Scale 4-6) Sodium Chloride (0.9 % Sodium Chloride Flush 3 Ml Syringe) 3 ml IVFLUSH QSHIFT [facility] Vitamin D (Cholecalciferol (Vitamin D3) 25 Mcg Tablet) 25 mcg PO DAILY [facility] Home Medications Medication Instructions Recorded Confirmed Last Taken Type aspirin 81 mg tablet,delayed 81 mg PO DAILY 09/14/21 05/02/23 05/01/23 History release (Adult Low Dose Aspirin) cholecalciferol (vitamin D3) 25 25 mcg PO DAILY 09/14/21 05/02/23 05/08/23 History mcg (1,000 unit) capsule lisinopril 20 mg tablet 20 mg PO DAILY 02/10/22 05/02/23 05/08/23 History chlorthalidone 25 mg tablet 25 mg PO DAILY 04/26/23 05/02/23 05/08/23 History Physical Exam Vital Signs: Vital Signs: Last Vital Signs Temp 97.4 F 05/09/23 13:59 Pulse 104 H 05/09/23 14:00 Resp 20 05/09/23 14:00 BP 170/98 H 05/09/23 14:00 Pulse Ox 100 05/09/23 14:00 O2 Del Method Room Air 05/09/23 14:00 BMI result Body Mass Index 21.8 awake alert oriented and nonfocal neurologically bedside echo defining normal LV function and no acute EKG changes abdomen benign no bruits no organomegaly chest clear bilaterally without adventitious sounds well-perfused and good bilateral peripheral pulses Results Labs 05/09/23 06:30 05/09/23 06:30 Labs: Short CBC 05/09/23 Range/Units 06:30 WBC 7.0 (4.8-10.8) X10*3/uL Hgb 13.9 (12.0-16.0) g/dl Hct 40.9 (37.0-47.0) % Plt Count 217 D (160-400) X10*3/uL BMP 05/09/23 06:30 Sodium 139 Potassium 3.5 Chloride 95 L Carbon Dioxide 22 BUN 33 H Creatinine 1.41 H Calcium 11.1 H D Assessment and Plan (1) Left carotid stenosis: Status: Acute (2) Essential hypertension: Status: Acute (3) Bilateral carotid artery stenosis: Status: Acute (4) Other and unspecified hyperlipidemia: Status: Acute (5) Excessive drinking alcohol: Status: Acute (6) Carotid stenosis, right: Status: Acute Plan with the arterial line will follow blood pressure and will follow her renal function bike by a chemistry it was my guess is is that the slightly elevated creatinine is probably on the basis of the Karsten inhibition and in of itself does not preclude the use of Karsten inhibitors Time Spent With Patient Time: Total time managing care of this patient today _35___ minutes.
--- NOTE | 2023-05-09 15:29 | PC.NURSE ---
Patient arrived to unit from PACU in bed. Patient sitting up, awake, tearful, c/o 7/10 pain to the head - refusing to take PO until she can eat something - pt reports getting nauseous when taking pills on empty stomach. IV fluid & postop abx started - patient developed worsening chills/tremors, SBP 170-200's, HR 110's sinus - MD at bedside ? allergic reaction - abx stopped and d/c'd VO Dr Arroyo. PRN Zofran then PRN Morphine administered w/o effect. Versed 2mg IVP administered - tremors subsided. SBP down 110's, HR 80's. Patient appears more comfortable, stating I feel so much better , pain down to 3/10. Patient able to eat 75% of lunch and 240cc liquids w/o any nausea/discomfort. O2 sat down to mid 80's when sleeping - 2L NC applied and O2 sat up to high 90's. Withams correlated to manual BP. Family called and updated by this RN per patient request.
--- NOTE | 2023-05-09 16:31 | PC.NURSE ---
Assumed care at 1610 - Patient alert and oriented. A-line right wrist - CMS WNL, appropriate waveform. Right neck dressing - CDI. Pain management with good effect (Patient medicated previously & utilizing cold pack) - reports pain tolerable at a 3/10. Patient reports ability to swallow without issue. Voice is clear. Denied need for PO pain meds at this time. Oriented to call manriquez and line safety - patient reports able to utilize call manriquez if any issues.
[2023-05-09] MEDS: oxyCODONE HCl Immed Release 5 MG TABLET PO ×2 (19:41→23:38)
[2023-05-09] MEDS: 0.9 % Sodium Chloride Flush 3 ML SYRINGE IVFLUSH (23:30)
[2023-05-10] VITALS (16 sets, daily range): BP systolic 97–155; BP diastolic 52–76; PULSE 15–114; RESP 11–20; TEMP 36.2–36.6; O2SAT 92–99; BMI 25.4
--- NOTE | 2023-05-10 04:05 | PC.NURSE ---
CARE ASSUMED 23:15..AWAKE..ALERT..ORIENTED X3..SPEECH CLEAR..BISWAS WITH GOOD STRENGTH..REPOSITIONS SELF AD-DEVIKA...RIGHT NECK DRESSING DRY/INTACT..NO STAINING..NO SWELLING...RIGHT RADIAL A-LINE WITH GOOD WAVEFORM AND CMS TO RIGHT HAND..NS 0.9% 80 CC/HR..DRINKING H20 W/O DIFFICULTY..JACKSON YELLOW URINE...OXYCODONE PO X1 FOR C/O SURGICAL SITE DISCOMFORT..DOZING W/O DIFFICULTY AFTER RECEIPT..NEUROLOGIC STATUS STABLE OVERNIGHT
[2023-05-10 05:02] LABS: MANUAL DIFF FLAG NO
[2023-05-10 05:05] LABS: Basophils Absolute Auto 0.1 X10*3/uL (0.0-0.2); Basophils Percent Auto 1.5 % (0-2); Eosinophils Absolute Auto 0.3 X10*3/uL (0.0-0.4); Eosinophils Percent Auto 4.7 % (0-4); Hematocrit 29.4 % (37.0-47.0); Hemoglobin 10.1 g/dl (12.0-16.0); Imm Gran Abs Auto 0.03 X10*3/uL (0.00-0.03); Imm Gran Pct Auto 0.6 % (0.0-0.4); Lymphocytes Absolute Auto 1.5 X10*3/uL (1.2-4.9); Lymphocytes Percent Auto 27.4 % (20-40); Mean Corpuscular HGB Conc 34.4 g/dl (31.0-35.0); Mean Corpuscular Hemoglobin 34.5 pg (27.0-33.0); Mean Corpuscular Volume 100.3 fL (80.0-98.0); Monocytes Absolute Auto 0.7 X10*3/uL (0.1-1.2); Monocytes Percent Auto 12.3 % (2-11); Neutrophils Absolute Auto 2.8 x10*3/uL (2.0-8.3); Neutrophils Percent Auto 53.5 % (45-73); Platelet Count 157 X10*3/uL (160-400); Red Blood Count 2.93 X10*6/uL (4.20-5.50); Red Cell Distribution Width 11.6 % (11.0-16.0); White Blood Count 5.3 X10*3/uL (4.8-10.8)
[2023-05-10 05:22] LABS: Anion Gap 20 (12-20); Blood Urea Nitrogen 22 mg/dL (9-16); Calcium 8.8 mg/dL (8.4-10.2); Carbon Dioxide 22 mmol/L (22-29); Chloride 100 mmol/L (96-108); Creatinine Clr Calc Pharmacy 56.4; Estimated Glomerular Filt Rate > 60; Glucose Random 104 mg/dL (60-115); Potassium 3.3 mmol/L (3.3-5.1); Sodium 139 mmol/L (135-145)
[2023-05-10] MEDS: oxyCODONE HCl Immed Release 5 MG TABLET PO ×2 (05:41→13:08)
[2023-05-10] MEDS: Potassium Chloride Packet 20 MEQ PACKET PO (06:38)
[2023-05-10] MEDS: 0.9 % Sodium Chloride Flush 3 ML SYRINGE IVFLUSH (08:05)
[2023-05-10] MEDS: Aspirin Enteric Coated 81 MG TABLET.DR PO (08:06)
[2023-05-10] MEDS: lisinopriL 20 MG TABLET PO (08:06)
[2023-05-10] MEDS: Cholecalciferol (Vitamin D3) 25 MCG TABLET PO (08:06)
[2023-05-10] MEDS: hydroCHLOROthiazide 25 MG TABLET PO (08:06)
--- NOTE | 2023-05-10 12:55 | PM.DS ---
DS: Providers Provider Date of Service: 05/10/23 Date of admission: 05/09/23 06:07 Primary care physician: Surya Amos MD DS: Diagnosis Discharge Diagnosis (1) Left carotid stenosis: Status: Acute (2) Essential hypertension: Status: Acute (3) Bilateral carotid artery stenosis: Status: Acute (4) Other and unspecified hyperlipidemia: Status: Acute (5) Excessive drinking alcohol: Status: Acute (6) Carotid stenosis, right: Status: Acute DS: Summary Hospital Course Hospital Course: Patient underwent right carotid endarterectomy on 05/09/2023. Did extremely well no incidence postop. Was observed in recovery and ICU overnight. Postop day 1 tolerating regular diet neurologically intact was subsequently discharged. Time Spent with Patient Time attestation: Total time managing care of this patient today ____ minutes. Discharge coordination time: Greater than 30 minutes Quality: Safe Use of Opioids Does Pt have an Active Cancer Diagnosis on the Problem List?: No Quality: Stroke Does the patient have a stroke diagnosis?: No Physical Exam Vital Signs: Vital Signs: Last Vital Signs Temp 97.2 F 05/10/23 08:00 Pulse 86 05/10/23 12:00 Resp 20 05/10/23 12:00 BP 122/65 05/10/23 12:00 Pulse Ox 97 05/10/23 12:00 O2 Del Method Room Air 05/10/23 12:00 O2 Flow Rate 1 05/10/23 07:00 Oxygen Flow Rate 1 05/10/23 07:22 BMI result Body Mass Index 25.4 Const: General: cooperative, healthy appearing and no acute distress Orientation/consciousness: oriented to person, oriented to place and oriented to time HEENT: Head: Yes normal to inspection Neck: Carotids: no bruits Chest: Chest palpation & inspection: normal inspection of the chest Resp: Effort & Inspection: normal respiratory effort and able to speak in complete sentences Auscultation: clear to auscultation bilaterally Cardio: Rate: regular rate Heart sounds: S1 normal heart sound present and S2 normal heart sound present GI: Inspection: Yes normal to inspection Skin: Other: Right neck incision healing well General skin exam: no rashes or lesions noted Wounds: no wounds Neuro: General: oriented to person, oriented to place, oriented to time and CN's II-XI intact bilaterally Extrem: General: Yes normal to inspection, Yes full ROM and Yes no clubbing, cyanosis or edema Psych: Appearance: grossly normal and well kempt Speech and movement: Normal speech and movement present Affect: normal affect DS: Data Data Completed and Pending Completed studies during hospitalization [Text1]: Procedures Extirpation of Matter from Left Common Carotid Artery, Open Approach (10/19/21) Extirpation of Matter from Left External Carotid Artery, Open Approach (10/19/21) Supplement Left Common Carotid Artery with Synthetic Substitute, Open Approach (10/19/21) Supplement Left External Carotid Artery with Synthetic Substitute, Open Approach (10/19/21) Transfusion of Nonautologous Platelets into Peripheral Vein, Percutaneous Approach (10/19/21) Pending studies at discharge: Pending at discharge 05/09/23 09:16 Surgical [PTH] Routine Labs on day of discharge: Laboratory Results - last 24 hr 05/10/23 05/10/23 04:57 04:57 WBC 5.3 RBC 2.93 L D Hgb 10.1 L D Hct 29.4 L D MCV 100.3 H MCH 34.5 H MCHC 34.4 RDW 11.6 Plt Count 157 L D MPV 10.0 Immature Gran % (Auto) 0.6 H Neut % (Auto) 53.5 Lymph % (Auto) 27.4 [place] % (Auto) 12.3 H Eos % (Auto) 4.7 H Baso % (Auto) 1.5 Lymph # (Auto) 1.5 [place] # (Auto) 0.7 Eos # (Auto) 0.3 Baso # (Auto) 0.1 Abs Immat Gran (auto) 0.03 Absolute Neuts (auto) 2.8 Absolute Nucleated RBC 0.000 Nucleated RBC % (auto) 0.0 Sodium 139 Potassium 3.3 Chloride 100 Carbon Dioxide 22 Anion Gap 20 BUN 22 H Creatinine 0.91 Estim Creat Clear Calc 56.4 Estimated GFR > 60 Random Glucose 104 Calcium 8.8 D Discharge Plan Discharge Anticipated Discharge Date/Time: 05/10/23 12:50 Patient Disposition: Home, Self-Care Discharge Diagnosis: Status post carotid endarterectomy Referrals: Surya Amos MD [Primary Care Provider] - 1 Week Discharge Medications: New oxycodone-acetaminophen [Percocet] 5-325 mg tablet 1 tab PO Q8H PRN (Reason: pain) Qty: 10 0RF Rx Instructions: Partial Fill upon patient request. Continued Praluent Pen 75 mg/mL pen injector 75 mg subcut Q2W Qty: 2 5RF Rx Instructions: inject into abdomen, thigh, or upper arm (deltoid muscle); rotate sites aspirin [Adult Low Dose Aspirin] 81 mg tablet,delayed release (DR/EC) 81 mg PO DAILY Hold Instructions: Resume on 10/26/21. cholecalciferol (vitamin D3) 25 mcg (1,000 unit) capsule 25 mcg PO DAILY lisinopril 20 mg tablet 20 mg PO DAILY chlorthalidone 25 mg tablet 25 mg PO DAILY Discharge Orders: Discharge Order (Routine); Ordered 05/10/23 Ordered By: Darell Drew Diet: Advance to usual diet Activity on Discharge: As tolerated Stand Alone Forms: Patient Portal Discharge page Activity Restrictions/Additional Instructions: Please see instruction she Care Plan Goals: Carotid surveillance Health Concerns: Status post carotid endarterectomy Plan of Treatment: Carotid surveillance Assessment: Status post carotid endarterectomy
--- NOTE | 2023-05-10 13:17 | MHC.CM.PN ---
Met with pt to review d/c planning needs: pt is independent w/all care needs, no DME or services: spouse to transport to home today. Pt to f/u w/vascular outpt.
--- NOTE | 2023-05-10 14:44 | HO.POSTANES ---
Post Anesthesia Evaluation Post Anesthesia Evaluation Date of Service: 05/10/23 Vital Signs: Vital Signs Temp Pulse Resp BP Pulse Ox O2 Del Method O2 Flow Rate 05/10/23 10:00 89 20 148/56 H 92 Room Air 05/10/23 13:00 Room Air 05/10/23 12:00 86 20 122/65 97 Room Air 05/10/23 11:00 80 14 125/74 93 Room Air 05/10/23 09:00 114 H 16 93 Room Air 05/10/23 08:00 97.2 F 15 L 120/73 98 Room Air 05/10/23 07:22 98 Nasal Cannula 05/10/23 07:00 72 20 99/53 L 97 Nasal Cannula 1 05/10/23 05:44 86 18 155/76 H 99 Room Air 05/10/23 04:53 80 16 136/65 99 Room Air 05/10/23 04:00 78 16 124/62 99 Room Air 05/10/23 02:56 97.9 F 78 16 114/58 L 98 Nasal Cannula 2 Anesthesia: General Endotracheal-GETA Mental Status: Awake Pain Control: Satisfactory Nausea/Vomiting: None Hydration: Adequate Anesthesia-Related Issues: No Anes. Related Issues
== END 2023-05-10 13:31 | disposition home or self-care (01) | DRG 39 ==
LOC: HO.SSSA 06:08 → HO.ICU 13:26
PROVIDERS: Nurse Practitioner; Admitting Provider Surgery Vascular Surgery; PCP Internal Medicine; Visit Provider Surgery Vascular Surgery
PROC: 03CH0ZZ Extirpation of Matter from Right Common Carotid Artery, Open Approach (ICD-10-PCS; CPT 35301; principal; 2023-05-09 07:30)
DX: I65.21 Occlusion and stenosis of right carotid artery (principal); E78.00 Pure hypercholesterolemia, unspecified; F10.90 Alcohol use, unspecified, uncomplicated; I10 Essential (primary) hypertension; Z91.041 Radiographic dye allergy status; Z79.82 Long term (current) use of aspirin; Z79.899 Other long term (current) drug therapy
CPT/HCPCS: 36415; 80048; 85025; 85027; 85610; 85730; 86850; 86900; 86901; 88304; 88311; 93005; C1758; C1768; J0690; J1643; J2250; J2270; J2370; J2371; J2405; J2795; J3010

== ENCOUNTER → 2023-05-09 06:07 | Outpatient (BNV) | payer MEDICARE, SELFPAY | PROVIDERS: Admitting Provider Surgery Vascular Surgery; PCP Internal Medicine; Visit Provider Surgery Vascular Surgery | DX: I10 Essential (primary) hypertension (principal); I65.23 Occlusion and stenosis of bilateral carotid arteries; E78.5 Hyperlipidemia, unspecified; F10.10 Alcohol abuse, uncomplicated | CPT/HCPCS: 35301; 99024 ==

== ENCOUNTER → 2023-05-09 06:07 | Outpatient (BNV) | payer MEDICARE, SELFPAY | PROVIDERS: Admitting Provider Surgery Vascular Surgery; PCP Internal Medicine; Visit Provider Internal Medicine Cardiovascular Disease | DX: I65.22 Occlusion and stenosis of left carotid artery (principal); I10 Essential (primary) hypertension; I65.23 Occlusion and stenosis of bilateral carotid arteries; E78.5 Hyperlipidemia, unspecified; F10.10 Alcohol abuse, uncomplicated; I65.21 Occlusion and stenosis of right carotid artery | CPT/HCPCS: 99291 ==

== ENCOUNTER 2023-05-26 13:17 | Outpatient (AMB) | payer MEDICARE, SELFPAY ==
--- NOTE | 2023-05-26 13:21 | MHC.OFFVIS ---
Intake Vital Signs 05/26/23 13:33 05/26/23 13:35 BP 144/86 H 140/80 H Blood Pressure Location Lt brachial Rt brachial Position Sitting Sitting Intake Visit Reasons: 2 wk post R Carotid endarterectomy 05/09/23 Intake Note: post op 2 week follow up Right CEA 05/09/23 and Hx of Left CEA Oct 19, 2021, no issues Accompanied by: Spouse Allergies ibuprofen Allergy (Severe, Verified 05/26/23 13:32) Hives Iodinated Contrast Media [IV Contrast Dye] Allergy (Severe, Verified 05/26/23 13:32) Hives HPI 2 wk post R Carotid endarterectomy 05/09/23 HPI Details Very pleasant 67-year-old female presents for follow-up regarding right carotid stenosis. She had undergone right carotid endarterectomy on 05/09/2023. Postoperatively she did extremely well. She had no bleeding issues this time. She was subsequently discharged on postop day 1. Since that time she is doing extremely well and tolerating a diet with no issues. [facility] Medical History Colitis History of benign bladder tumor History of diverticulitis Hypercholesteremia Hypertension Personal history of COVID-19 Surgical History History of left-sided carotid endarterectomy (10/19/21) Hx of appendectomy Hx of colonoscopy Hx of cystoscopy Family History Mother No problems noted. Father No problems noted. Social History Household Members: Spouse Housing: House Are you a primary childbirth and infant care teacher to a significant other at home: No Do you presently have visiting nurse or other home services: No Alcohol intake: current Alcohol intake frequency: a few times a week Patient Tobacco Use Status: Never used Tobacco Second Hand Smoke Exposure: No Use of substances other than those prescribed or required for medical reasons: No service: No Current occupational status: employed Review of Systems Const All systems reviewed & are unremarkable except as noted in HPI and below Reports no additional complaints ENT Reports Normal hearing present Card Denies chest pain, Denies chest pain at rest, Denies chest pain with activity and Denies pedal edema Resp Denies cough GI Denies abdominal pain Musc Denies abnormal gait, Denies muscle cramps and Denies radiating pain into limb Skin/Breast Denies skin ulcer and Denies wounds Neuro Reports Normal hearing present and Denies abnormal gait Psych Reports no additional complaints Physical Exam Vital Signs: Last Vital Signs BP 140/80 H 05/26/23 13:35 Const General: cooperative, healthy appearing and comfortable Orientation/consciousness: oriented to person, oriented to place and oriented to time HEENT Head: Yes normal to inspection Neck Neck: Yes normal visual inspection Carotids: no bruits Chest Chest palpation & inspection: normal inspection of the chest Resp Effort & Inspection: normal respiratory effort and able to speak in complete sentences Auscultation: clear to auscultation bilaterally, no crackles, no rales, no rhonchi and no wheezes Cardio Rate: regular rate Rhythm: regular rhythm Heart sounds: S1 normal heart sound present and S2 normal heart sound present Bruits: no carotid bruits Peripheral pulses: Peripheral pulses 2+ throughout GI Inspection: Yes normal to inspection Skin Other: Right neck incision healing well Wounds: no wounds Hair: normal Neuro General: oriented to person, oriented to place and oriented to time Cranial nerves: Yes CN's II-XII intact bilaterally and Yes Normal hearing present Cognition (Neuro): normal cognition Motor exam (neuro): 5/5 motor strength present throughout Extrem Other: venous exam: No significant superficial varicosities or spider telangiectasias, minimal edema General: No clubbing, No cyanosis and No edema Psych Appearance: grossly normal Mental Status: mental status grossly normal Speech and movement: Normal speech and movement present Assessment & Plan Assessment & Plan (1) Bilateral carotid artery stenosis: Comment: 10/19/2021 - left carotid endarterectomy 05/09/2023 - right carotid endarterectomy Code(s): I65.23 - Occlusion and stenosis of bilateral carotid arteries Plan: In short patient is doing well status post right carotid endarterectomy. We have reviewed signs and symptoms of a stroke. We also discussed risk factor modification inclusive a healthy diet low in cholesterol. The patient will follow up with us with surveillance ultrasound of the carotids 3 months time. Should there be any changes or signs or symptoms of a stroke we will be happy to see them back sooner. Thank you for allowing us to participate in this patient's care. If there are any questions or concerns please do not hesitate to contact us. Orders: Orders US carotid duplex BI 2 Months I65.23 - Occlusion and stenosis of bilateral carotid arteries Coding Level of Care Code Global (49043) Diagnoses Bilateral carotid artery stenosis I65.23
[2023-05-26 13:33] VITALS: BP 144/86
[2023-05-26 13:35] VITALS: BP 140/80
== END 2023-05-26 14:04 | disposition home or self-care (01) ==
PROVIDERS: PCP Internal Medicine; Visit Provider Surgery Vascular Surgery
DX: I65.23 Occlusion and stenosis of bilateral carotid arteries (principal)
CPT/HCPCS: 99024

== ENCOUNTER → 2023-05-26 13:17 | Outpatient (BNVA) | payer MEDICARE, SELFPAY | PROVIDERS: PCP Internal Medicine; Visit Provider Surgery Vascular Surgery ==

== ENCOUNTER 2023-07-21 10:03 | Outpatient (REF) | payer MEDICARE, SELFPAY ==
--- NOTE | ~2023-07-21 | US_ITS ---
EXAMINATION: US EXTRACRANIAL CAROTID DUPLEX, BILATERAL CLINICAL INFORMATION: Carotid stenosis. Bilateral endarterectomies (most recently April 2023 on the right). COMPARISON: Preoperative carotid ultrasound 08/02/2022. TECHNIQUE: Real-time ultrasound and Doppler techniques (integrating B-mode 2-D vascular images, Doppler spectral analysis and color-flow Doppler imaging) were utilized to interrogate the extracranial carotid arteries, the vertebral arteries and proximal subclavian arteries bilaterally. The degree of stenosis is determined by criteria similar to NASCET. FINDINGS: Right Side: 1. There is mild atherosclerotic plaque seen in the bifurcation/proximal ICA region. 2. The common carotid artery PSV proximally is 119 cm/s and distally 138 cm/s. 3. The proximal internal carotid artery velocities are 165 cm/s systolic and 43 cm/s diastolic. Preendarterectomy velocity 245/66 cm/s. 4. The proximal external carotid artery PSV is 250 cm/s. 5. The vertebral artery shows antegrade flow. 6. The subclavian artery waveforms are normal. Left Side: 1. There is mild atherosclerotic plaque seen in the bifurcation/proximal ICA region. 2. The common carotid artery PSV proximally is 127 cm/s and distally 122 cm/s. 3. The proximal internal carotid artery velocities are 115 cm/s systolic and 36 cm/s diastolic. 4. The proximal external carotid artery PSV is 141 cm/s. 5. The vertebral artery shows antegrade flow. 6. The subclavian artery waveforms are normal. 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 US/US carotid duplex BI IMPRESSION: 1. RIGHT: New endarterectomy with mildly increased proximal internal carotid peak systolic velocity of 165 cm/s consistent with less than 50% restenosis in this context. Preendarterectomy velocity was 245/66 cm/s. 2. LEFT: Stable endarterectomy with normal velocities.
== END 2023-07-21 10:04 | disposition home or self-care (01) ==
LOC: HO.HMGCX 10:03
PROVIDERS: PCP Internal Medicine; Visit Provider Surgery Vascular Surgery
DX: I65.23 Occlusion and stenosis of bilateral carotid arteries (principal)
CPT/HCPCS: 93880

== ENCOUNTER 2023-08-16 12:52 | Outpatient (AMB) | payer MEDICARE, SELFPAY ==
[2023-08-16 12:54] VITALS: BP 110/58; BMI 20.6
--- NOTE | 2023-08-16 12:54 | MHC.OFFVIS ---
Intake Vital Signs 08/16/23 12:54 08/16/23 13:03 Height 5 ft 4 in Weight 120 lb BMI 20.6 BP 110/58 L 118/62 Blood Pressure Location Rt brachial Lt brachial Position Sitting Sitting Intake Visit Reasons: 3 mo follow up s/p carotid US Intake Note: 3 mo follow up Right CEA 05/09/23 s/p carotid US 07/21/23 and Hx of Left CEA 10/19/2021. Pt states no issues Accompanied by: Spouse Allergies ibuprofen Allergy (Severe, Verified 08/16/23 12:58) Hives Iodinated Contrast Media [IV Contrast Dye] Allergy (Severe, Verified 08/16/23 12:58) Hives HPI 3 mo follow up s/p carotid US HPI Details Very pleasant 68-year-old female presents for routine carotid surveillance follow-up. She had undergone right carotid endarterectomy 3 months ago. She reports she is doing fairly well only little bit of numbness in the jaw are region. Other than that tolerating a diet no other significant complaints. She is being maintained on an aspirin. COUNTS INCLUDE 234 BEDS AT THE [facility] Medical History History of diverticulitis Colitis Personal history of COVID-19 History of benign bladder tumor Hypertension Hypercholesteremia Surgical History History of left-sided carotid endarterectomy (10/19/21) Hx of colonoscopy Hx of cystoscopy Hx of appendectomy Family History Mother No problems noted. Father No problems noted. Social History Household Members: Spouse Housing: House Are you a primary child care coordinator to a significant other at home: No Do you presently have visiting nurse or other home services: No Alcohol intake: current Alcohol intake frequency: a few times a week Patient Tobacco Use Status: Never used Tobacco Second Hand Smoke Exposure: No service: No Current occupational status: employed Review of Systems Const All systems reviewed & are unremarkable except as noted in HPI and below Reports no additional complaints ENT Reports Normal hearing present Card Denies chest pain, Denies chest pain at rest, Denies chest pain with activity and Denies pedal edema Resp Denies cough GI Denies abdominal pain Musc Denies abnormal gait, Denies muscle cramps and Denies radiating pain into limb Skin/Breast Denies skin ulcer and Denies wounds Neuro Reports Normal hearing present and Denies abnormal gait Psych Reports no additional complaints Physical Exam Vital Signs: Last Vital Signs BP 118/62 08/16/23 13:03 BMI result Body Mass Index 20.6 Const General: cooperative, healthy appearing and comfortable Orientation/consciousness: oriented to person, oriented to place and oriented to time HEENT Head: Yes normal to inspection Neck Neck: Yes normal visual inspection Carotids: no bruits Chest Chest palpation & inspection: normal inspection of the chest Resp Effort & Inspection: normal respiratory effort and able to speak in complete sentences Auscultation: clear to auscultation bilaterally, no crackles, no rales, no rhonchi and no wheezes Cardio Rate: regular rate Rhythm: regular rhythm Heart sounds: S1 normal heart sound present and S2 normal heart sound present Bruits: no carotid bruits Peripheral pulses: Peripheral pulses 2+ throughout GI Inspection: Yes normal to inspection Skin Other: Bilateral neck incisions well healed Wounds: no wounds Hair: normal Neuro General: oriented to person, oriented to place and oriented to time Cranial nerves: Yes CN's II-XII intact bilaterally and Yes Normal hearing present Cognition (Neuro): normal cognition Motor exam (neuro): 5/5 motor strength present throughout Extrem Other: venous exam: No significant superficial varicosities or spider telangiectasias, minimal edema General: No clubbing, No cyanosis and No edema Psych Appearance: grossly normal Mental Status: mental status grossly normal Speech and movement: Normal speech and movement present Results Reviewed Results Reviewed: Carotid testing dated 07/21/2023 demonstrates right side 50-69 with because the peak systolic velocity was 165 but it is closer to 40-50% left side 0-49% stenosis. Written report and images were reviewed. Assessment & Plan Assessment & Plan (1) Bilateral carotid artery stenosis: Comment: 10/19/2021 - left carotid endarterectomy 05/09/2023 - right carotid endarterectomy Code(s): I65.23 - Occlusion and stenosis of bilateral carotid arteries Plan: In short patient has asymptomatic carotid disease and is stable from bilateral carotid endarterectomy. We have reviewed signs and symptoms of a stroke. We also discussed risk factor modification inclusive a healthy diet low in cholesterol. The patient will follow up with us with surveillance ultrasound of the carotids 6 months. Should there be any changes or signs or symptoms of a stroke we will be happy to see them back sooner. Thank you for allowing us to participate in this patient's care. If there are any questions or concerns please do not hesitate to contact us. Orders: Orders US carotid duplex BI 6 Months I65.23 - Occlusion and stenosis of bilateral carotid arteries Coding Level of Care Code Est Pt Level 4 (65041) Diagnoses Bilateral carotid artery stenosis I65.23
[2023-08-16 13:03] VITALS: BP 118/62
== END 2023-08-16 13:23 | disposition home or self-care (01) ==
PROVIDERS: PCP Internal Medicine; Visit Provider Surgery Vascular Surgery
DX: I65.23 Occlusion and stenosis of bilateral carotid arteries (principal)
CPT/HCPCS: 99213

== ENCOUNTER → 2023-08-16 12:52 | Outpatient (BNVA) | payer MEDICARE, SELFPAY | PROVIDERS: PCP Internal Medicine; Visit Provider Surgery Vascular Surgery | DX: I65.23 Occlusion and stenosis of bilateral carotid arteries (principal) | CPT/HCPCS: 99212 ==

== ENCOUNTER 2024-02-14 10:38 | Outpatient (REF) | payer MEDICARE, SELFPAY ==
--- NOTE | ~2024-02-14 | US_ITS ---
EXAMINATION: US EXTRACRANIAL CAROTID DUPLEX, BILATERAL CLINICAL INFORMATION: Carotid stenosis. History of bilateral carotid endarterectomies. COMPARISON: Carotid ultrasound 07/21/2023. TECHNIQUE: Real-time ultrasound and Doppler techniques (integrating B-mode 2-D vascular images, Doppler spectral analysis and color-flow Doppler imaging) were utilized to interrogate the extracranial carotid arteries, the vertebral arteries and proximal subclavian arteries bilaterally. The degree of stenosis is determined by criteria similar to NASCET. FINDINGS: Right Side: 1. Endarterectomy with minimal visible plaque. 2. The common carotid artery PSV proximally is 114 cm/s and distally 125 cm/s. 3. The proximal internal carotid artery velocities are 190 cm/s systolic and 35 cm/s diastolic. 4. The proximal external carotid artery PSV is 280 cm/s. 5. The vertebral artery shows antegrade flow. 6. The subclavian artery is atherosclerotic with elevated velocity 216 cm/s but normal waveform. Left Side: 1. Endarterectomy with minimal visible plaque. 2. The common carotid artery PSV proximally is 148 cm/s and distally 149 cm/s. 3. The proximal internal carotid artery velocities are 113 cm/s systolic and 26 cm/s diastolic. 4. The proximal external carotid artery PSV is 258 cm/s. 5. The vertebral artery shows antegrade flow. 6. The subclavian artery is unremarkable. US/US carotid duplex BI IMPRESSION: 1. RIGHT: Endarterectomy with mildly elevated velocity in the proximal ICA of 190 cm/s consistent with less than 50% stenosis in this context. 2. LEFT: Endarterectomy with normal velocity in the proximal ICA. 3. There is no change in the category severity of disease when compared to the previous study dated 07/21/2023.
== END 2024-02-14 10:39 | disposition home or self-care (01) ==
LOC: HO.HMGCX 10:38
PROVIDERS: PCP Internal Medicine; Visit Provider Surgery Vascular Surgery
DX: I65.23 Occlusion and stenosis of bilateral carotid arteries (principal)
CPT/HCPCS: 93880

== ENCOUNTER 2024-02-21 13:04 | Outpatient (AMB) | payer MEDICARE, SELFPAY ==
--- NOTE | 2024-02-21 13:14 | MHC.OFFVIS ---
Intake Visit Reasons: Ultrasound follow up Intake Note: Patient presents for carotid ultrasound on 02/13. Has no symptoms or concerns at the moment. Accompanied by: Spouse Allergies ibuprofen Allergy (Severe, Verified 02/21/24 13:16) Hives Iodinated Contrast Media [IV Contrast Dye] Allergy (Severe, Verified 02/21/24 13:16) Hives HPI HPI Ultrasound follow up: Details: Very pleasant 68-year-old female presents for routine surveillance follow-up regarding her carotids. She is undergone bilateral carotid endarterectomy with us. At the current time no interval changes. She reports she is doing fairly well. Now for follow-up with surveillance ultrasound. She does have some mild numbness on incision lines but it appears to be stable. [facility] Medical History History of diverticulitis Colitis Personal history of COVID-19 History of benign bladder tumor Hypertension Hypercholesteremia Surgical History History of left-sided carotid endarterectomy (10/19/21) Hx of colonoscopy Hx of cystoscopy Hx of appendectomy Family History Mother No problems noted. Father No problems noted. Social History Household Members: Spouse Housing: House Are you a primary critical care nurse to a significant other at home: No Do you presently have visiting nurse or other home services: No Alcohol intake: current Alcohol intake frequency: a few times a week Patient Tobacco Use Status: Never used Tobacco Second Hand Smoke Exposure: No service: No Current occupational status: employed Review of Systems Const All systems reviewed & are unremarkable except as noted in HPI and below Reports no additional complaints ENT Reports Normal hearing present Card Denies chest pain, Denies chest pain at rest, Denies chest pain with activity and Denies pedal edema Resp Denies cough GI Denies abdominal pain Musc Denies abnormal gait, Denies muscle cramps and Denies radiating pain into limb Skin/Breast Denies skin ulcer and Denies wounds Neuro Reports Normal hearing present and Denies abnormal gait Psych Reports no additional complaints Physical Exam Const General: cooperative, healthy appearing and comfortable Orientation/consciousness: oriented to person, oriented to place and oriented to time HEENT Head: Yes normal to inspection Neck Neck: Yes normal visual inspection Carotids: no bruits Chest Chest palpation & inspection: normal inspection of the chest Resp Effort & Inspection: normal respiratory effort and able to speak in complete sentences Auscultation: clear to auscultation bilaterally, no crackles, no rales, no rhonchi and no wheezes Cardio Rate: regular rate Rhythm: regular rhythm Heart sounds: S1 normal heart sound present and S2 normal heart sound present Bruits: no carotid bruits Peripheral pulses: Peripheral pulses 2+ throughout GI Inspection: Yes normal to inspection Skin Wounds: no wounds Hair: normal Neuro General: oriented to person, oriented to place and oriented to time Cranial nerves: Yes CN's II-XII intact bilaterally and Yes Normal hearing present Cognition (Neuro): normal cognition Motor exam (neuro): 5/5 motor strength present throughout Extrem Other: venous exam: No significant superficial varicosities or spider telangiectasias, minimal edema General: No clubbing, No cyanosis and No edema Psych Appearance: grossly normal Mental Status: mental status grossly normal Speech and movement: Normal speech and movement present Results Reviewed Results Reviewed: Right side 50-79% with a peak systolic of 190 left side less than 50% stenosis on testing dated 02/14/2024. Written report and images were reviewed. Assessment & Plan Assessment & Plan (1) Bilateral carotid artery stenosis: Comment: 10/19/2021 - left carotid endarterectomy 05/09/2023 - right carotid endarterectomy Code(s): I65.23 - Occlusion and stenosis of bilateral carotid arteries Category: Medical Plan: In short patient has asymptomatic carotid disease. We have reviewed signs and symptoms of a stroke. We also discussed risk factor modification inclusive a healthy diet low in cholesterol. The patient will follow up with us with surveillance ultrasound of the carotids 1 year. Should there be any changes or signs or symptoms of a stroke we will be happy to see them back sooner. Thank you for allowing us to participate in this patient's care. If there are any questions or concerns please do not hesitate to contact us. Orders: Orders US carotid duplex BI 1 Year I65.23 - Occlusion and stenosis of bilateral carotid arteries Coding Level of Care Code Est Pt Level 4 (47065) Diagnoses Bilateral carotid artery stenosis I65.23
== END 2024-02-21 13:43 | disposition home or self-care (01) ==
PROVIDERS: PCP Internal Medicine; Visit Provider Surgery Vascular Surgery
DX: I65.23 Occlusion and stenosis of bilateral carotid arteries (principal)
CPT/HCPCS: 99213

== ENCOUNTER → 2024-02-21 13:04 | Outpatient (BNVA) | payer MEDICARE, SELFPAY | PROVIDERS: PCP Internal Medicine; Visit Provider Surgery Vascular Surgery | DX: I65.23 Occlusion and stenosis of bilateral carotid arteries (principal) | CPT/HCPCS: 99212 ==

== ENCOUNTER 2025-02-18 14:03 | Outpatient (REF) | payer MEDICARE, SELFPAY ==
--- NOTE | ~2025-02-18 | US_ITS ---
EXAMINATION: BILATERAL CAROTID ULTRASOUND WITH DOPPLER HISTORY: I65.23 - Occlusion and stenosis of bilateral carotid arteries COMPARISON: Comparison is made with the prior examination dated 02/14/2024. TECHNIQUE: Real time and Color and Spectral doppler ultrasonography of the carotid and vertebral arteries was performed in multiple planes. FINDINGS: There is a small amount of plaque in both internal carotid arteries. An occasional arrhythmias noted. VERTEBRAL FLOW DIRECTION: Antegrade bilaterally. PEAK SYSTOLIC VELOCITIES (in cm/sec): RIGHT: CCA: Prox: 103 Dist: 97 ICA: Prox: 121 Mid: 105 Dist: 96 ICA/CCA Ratio: 1.17 ECA: 164 Peak ICA end diastolic velocity (EDV): 37 LEFT: CCA: Prox: 139 Dist: 100 ICA: Prox: 105 Mid: 87 Dist: 90 ICA/CCA Ratio: 0.76 ECA: 126 Peak ICA end diastolic velocity (EDV): 36 US/US carotid duplex BI IMPRESSION: 1. Findings consistent with 0-49% stenosis of the bilateral internal carotid arteries. 2. Occasional arrhythmia. Correlation with the EKG is recommended. Electronically signed by: Marcel Márquez MD 02/18/2025 02:40 PM EDT
--- OUTSIDE RECORDS SUMMARY | 2025-02-18 14:19 | XMS_ITS | Encounter Summary ---
Author Organization [facility] Address [address] [place] [id number] Phone Care Team Providers Care Machine Tool Operator Name Role Phone AlixAlayna lovell Denia SUJATA Primary Care Provider Surya Amos MD Primary Care Provider [phone] Encounter Details Date Type Department Care Team (Late st Contact Info) Description 08/30/2021 Procedure Pass [address] [address] Social History Tobacco Use Types Packs/Day Years Used Date Smoking Tobacco: Never Smokeless Tobacco: Never Alcohol Use Standard Drinks/Week Comments Yes 2 (1 standard drink = 0.6 oz pur e alcohol) 1 martini couple times a week Comments No Sex and Gender Information Value Date Recorded Sex Assigned at Female 04/08/2023 2:18 PM EDT Legal Sex Female 9:55 PM EDT Gender Identity Female 04/08/2023 2:18 PM EDT Sexual Orientation Not on file documented as of this encounter Plan of Treatment Upcoming Encounters Date Type Department Care Team (Late st Contact Info) Description 02/22/2025 2:45 PM EDT Office Visit [facility] Internal Medicine [address] [place] [address] [id number] Surya Amos MD [address] [place] [address] documented as of this encounter Visit Diagnoses Not on filedocumented in this encounter Additional Health Concerns Infection Onset Date Last Indicated Resolved Time CoV-Exposed Comment:Positive COVID-19 09/21/2021 09/21/2021 09/23/2021 5:4 0 PM EST COVID-19 09/21/2021 09/21/2021 10/12/2021 1:23 AM EST C. diff 04/09/2023 04/09/2023 05/09/2023 1:21 AM EDT documented as of this encounter Care Teams Machine Tool Operator Relationship Specialty Start Date End Date Alayna Jenkins CNP [address] [place] [address] PCP - General Internal Medicine 03/16/21 04/07/23 Surya Amos MD [address] [place] [address] PCP - General Internal Medicine 04/08/23 documented as of this encounter Additional Source Comments The information contained in this document represents components of the legal health record. It is not the complete legal health record.[facility]
--- OUTSIDE RECORDS SUMMARY | 2025-02-18 14:19 | XMS_ITS | Clinical Summary ---
Author Organization [facility] Address [address] [address] Phone Care Team Providers Care [employer] Name Role Phone uSrya Amos MD Primary Care Provider [phone] Allergies Active Allergy Reactions Criticality Noted Date Comments Ibuprofen Hives 04/14/2017 Iodinated Contrast Media Hives 08/30/2021 Medications aspirin 81 MG EC tablet Take 81 mg by mouth daily. Resume on 10/26/21 Post-Op Active cholecalciferol (VITAMIN D3) 2,000 unit capsule Take 2,000 Units by mouth daily. Active ondansetron (ZOFRAN) 4 MG tabletIndication s:Nausea and vomiting, unspecified vomiting type Take 1 tablet (4 mg total) by mouth every 8 (eight) hours as needed for nausea. 15 tablet 3 4 Active Additional Information Patient not taking.Reported on 10/12/2024 PRALUENT PEN 75 mg/mL PnIj subcutaneous pen injectorIndicati ons:Bilateral carotid artery stenosis Inject 1 mL (75 mg total) under the skin every 14 (fourteen) days. 2 mL 5 4 Active Additional Information Patient not taking.Reported on 10/12/2024 omeprazole (PRILOSEC) 40 MG capsule Take 40 mg by mouth daily. 4 Active lisinopril (PRINIVIL,ZESTRI L) 20 MG tabletIndication s:Essential hypertension TAKE 1 TABLET BY MOUTH EVERY DAY 90 tablet 5 Active Active Problems Problem Noted Date Diagnosed Date Routine general medical exam ination at a health care facility 03/20/2024 Assessment & Plan (03/20/2024 2:04 PM EDT): - This patient's exam is unremarkable. She has good pulses pedal and tibial posterior. She will continue the Praluent given the history of carotid endarterectomy. Her blood pressure at home is good she has a little bit of superimposed office hypertension. We can see the patient back after she returns from [place] in January. Then will follow a schedule where we see here in the fall for wellness visit. She should do the labs before she sees us. Cataract, bilateral 01/18/2024 Assessment & Plan (01/18/2024 4:14 PM EDT): This patient's already was worked up through her associate medical director regarding atherosclerosis of the carotid arteries with the syncopal episode back in October 31 showing bilateral carotid stenosis of high-grade prompting surgeries in October 2021 and April 2023. She continues on the biweekly Praluent for cholesterol and then takes an aspirin daily. She has high blood pressure but well-controlled with the Prinivil 20 mg tablet. Exam was stable, blood pressure within acceptable range, patient may proceed to cataract surgery without the need for further cardiac assessment. If need be the patient can come off of the aspirin 7 days prior to the procedure. Dysuria 10/12/2023 Assessment & Plan (10/12/2023 3:13 PM EST): The urinalysis should provide surety that there are no white cells red cells etc. if there is signs of UTI we can further investigate for example with an ultrasound and maybe restart antibiotic if indicated but right now certainly no signs of pyelonephritis or urethritis. S/P carotid endarterectomy 05/18/2023 Assessment & Plan (10/12/2023 3:16 PM EST): Status post endarterectomy bilateral, patient doing better, has follow-up with vascular surgery in 6 months and 1 year. Assessment & Plan (05/18/2023 9:36 AM EDT): Post surgical day 9. Site is healing well. She feels well. She will see Dr. Viki next week. Warning sign reviewed to call us back. Stool culture positive for Clostridium difficile 04/09/2023 Assessment & Plan (04/09/2023 2:39 PM EDT): ?? Stools are positive C. difficile PCR ?? Patient has not received any antibiotics recently. ?? We will await for reflex toxins results Most likely simply shedding BRBPR (bright red blood per rectum) 04/08/2023 Assessment & Plan (04/09/2023 2:38 PM EDT): Patient coming in with BRBPR with colitis by imaging ?? GI consultation appreciated ?? Telemetry monitoring ?? Serial H&H, Type and cross, transfuse if required for H&H <04/29 ?? Pain management ?? Holding aspirin DVT prophylaxis-SCD Colonoscopy findings most in keeping with ischemic colitis We will advance diet as tolerated Otherwise supportive care We will continue to trend H&H Would anticipate discharge in the next 24 to 48 hours Colitis 04/08/2023 Bilateral carotid artery stenosis 09/01/2021 Assessment & Plan (01/18/2024 4:12 PM EDT): The surgeries in 2021 and 2022 without complication for and are directory of the carotids. Patient on maintenance prevention with Praluent and aspirin. Acute vestibular syndrome 08/30/2021 Assessment & Plan (09/01/2021 6:03 PM EST): MRI does not show an infarct fortunately. She does have very significant white matter changes consistent with ischemic disease, prominent for age. Symptoms persist. Reviewed with PT, they feel that her exam are strongly consistent with central disease not peripheral as we had hoped. She has 2 different types of nystagmus and an unusual bouncing like gait. While she is not quite ataxic, he clearly reaches out to hold onto things in the room when they are trying to get her back and forth to the bathroom. Putting this altogether it is likely that she has had a CVA. Suspect it is small, she may need repeat imaging. Had a call out to neurology on the , to review the case, have them review the images to see if there is a different finding or to see if we should repeat them. In the interim, patient has spoken to PT/CM, and agrees to go to short-term acute rehab. This will make her safer before she goes home. We should be treating her like she had a CVA I think, with continued Holter monitor (we can put one on before she goes to acute rehab if they do not have it available there), antiplatelet agents, statin, reasonable blood pressure control. Still need to reach out to Dr. Drew From vascular surgery at [facility] (her preference), to discuss her significant carotid disease, SPECT that acute stroke and an appropriate follow-up time in the office. Hypertensive urgency 08/30/2021 Assessment & Plan (08/31/2021 2:23 PM EST): Patient presented with hypertensive urgency with systolics in the 210s. Patient received IV labetalol 10 mg with improvement down to systolics of 170s. Asymptomatic at rest. Patient with very likely longstanding hypertension. She was given lisinopril yesterday morning, her blood pressures have been excellent since. Per neurology we really do not want her higher than 160, we certainly do not want her hypotensive either given her known carotid artery disease. Potentially we will discharge her on a very low-dose lisinopril with close outpatient follow-up Essential hypertension 11/08/2017 Assessment & Plan (01/18/2024 4:19 PM EDT): Blood pressure is well-managed with the lisinopril and may be continued on the day of surgery. Assessment & Plan (10/12/2023 3:14 PM EST): Blood pressure here is elevated and on previous visits as well so I have charged the patient with the task to check blood pressure at home daily for the next 14 days and then call back and let us know that the blood pressures so we can determine whether the lisinopril is sufficient. Where shooting for 120/70. Will continue to ask regarding alcohol as this can cause blood pressure to elevate though she maintains that she has been off of alcohol for the past 6 months. Assessment & Plan (05/18/2023 9:37 AM EDT): Well controlled cont same Assessment & Plan (04/08/2023 8:20 PM EDT): ?? Continue with lisinopril 20 mg daily ?? elevated BP and heart rate in ED- prolonged 2.5 mg IV x1 given. ?? History of hypertensive urgency, monitor for recurrence Actinic keratosis 11/08/2017 Colon polyp 11/08/2017 Other hyperlipidemia 11/08/2017 Assessment & Plan (10/12/2023 3:15 PM EST): She will be on the Praluent through cardiology. Will continue to follow lipid profiles when due. Will do 1 before her next physical in March. Assessment & Plan (05/18/2023 9:37 AM EDT): Taking Praluent For lipid therapy. reviewed lipid levels Her today. Cont same Assessment & Plan (04/08/2023 8:19 PM EDT): Continue outpatient injections of Praluent Assessment & Plan (08/31/2021 2:25 PM EST): Patient with significant elevation of her cholesterol. Sounds like this are fairly strong history of this as well without a formal diagnosis. Certainly has significant evidence of vascular disease. Needs to be on high-dose statin, repeat blood work in the near future to make sure that it is lowering appropriately. May warrant more aggressive treatment than this. Abnormal liver function 11/08/2017 Sacroiliac inflammation 11/08/2017 Resolved Problems Problem Noted Date Diagnosed Date Resolved Date Syncope 08/30/2021 09/02/2021 Assessment & Plan (09/01/2021 6:04 PM EST): This is an odd part of the story. She will need a Holter monitor on discharge. Neurology is concerned that she has enough carotid stenosis to potentially cause this. PT and OT. Telemetry has been unremarkable. US shows significant carotid disease too. Need to reach out to vascular. Elevated LDL cholesterol level 11/08/2017 09/25/2018 Encounters Date Type Department Care Team Description 01/11/2025 [facility] [address] [facility] [place] [address] Surya Amos MD Medication Refill from Last 3 Months Immunizations Immunization Administration Dates Next Due COVID-19 (Pre-08/01) Pfizer Vaccine, mRNA, PF 01/09/2021,12/18/2020 Influenza High-Dose Quadriva lent Preservative Free IM 07/23/2023,08/07/2022,09/02/2021,2019 Influenza High-Dose Trivalen t Preservative Free IM 07/01/2024 Influenza Quadrivalent Prese rvative Free IM 09/25/2018,06/17/2016 Pneumococcal conjugate PCV20 02/14/2023 RSV Vaccine (monovalent, adjuvanted) 09/20/2023 Family History Medical History Relation Comments No Known Problems Daughter 1 No Known Problems Daughter 2 Factor V Leiden deficiency Father Hypertension Father No Known Problems Granddaughter 1 No Known Problems Granddaughter 2 No Known Problems Granddaughter 3 No Known Problems Grandson Hypertension Mother Hypertension Sister 1 Hypertension Sister 2 Hypertension Sister 3 Relation Status Comments Daughter 1 Alive Daughter 2 Alive Father blood disorder Granddaughter 1 Alive Granddaughter 2 Alive Granddaughter 3 Alive Grandson Alive Mother in MVA Sister 1 Alive Sister 2 Alive Sister 3 Alive Social History Tobacco Use Types Packs/Day Years Used Date Smoking Tobacco: Never Smokeless Tobacco: Never Tobacco Cessation:Counseling Given: Not Answered Alcohol Use Standard Drinks/Week Comments Not Currently 0 (1 standard drink = 0.6 oz pur e alcohol) few beer weekly Child or Family Care Answer Date Record ed Do you have problems with on e of the following making it difficult for you to work, study, or receive health care? No 03/20/2024 Education Answer Date Recorded Are you interested in more education? Not on minda e 02/04/2023 Are you concerned about learning? Not on file 02/04/2023 No 02/04/2023 No 02/04/2023 Food Answer Date Recorded Within the past 6 months we worried whether our food would run out before we got money to buy more. Never True 03/20/2024 Within the past 6 months the food we bought just didn't last and we didn't have enough money to get more. Never True Residential Stability Answer Date Recor ded What is your housing situation today? I have linda webb 03/20/2024 How many times have you move d in the past 12 months? Zero (I did not move) 03/20/2024 Paying for Meds Answer Date Recorded Do you have trouble paying for medicines? No 03/20/2024 Paying Utility Bills Answer Date Record ed Do you have trouble paying your heating or elect ricity bill? No 03/20/2024 Transportation Answer Date Recorded Has the lack of transportati on kept you from medical appointments or from getting medications? No 03/20/2024 Digital Access Answer Date Recorded No 03/20/2024 Yes 03/20/2024 Do you have reliable internet access at home? Ye s 03/20/2024 Do you have a device (e.g., phone, tablet, computer) with a working camera? Yes 03/20/2024 Intimate Partner Violence Answer Date R ecorded Are you denied basic needs s uch as food, clothing, or medical care? Deferred 10/12/2024 In the past 12 months have y ou been in a relationship with a person who hurts, threatens, or tries to control you? Deferred 10/12/2024 Are you denied basic needs s uch as food, clothing, or medical care? Deferred 10/12/2024 In the past 12 months have y ou been in a relationship with a person who hurts, threatens, or tries to control you? Deferred 10/12/2024 Comments No Sex and Gender Information Value Date Recorded Sex Assigned at Female 04/08/2023 2:18 PM EDT Legal Sex Female 9:55 PM EDT Gender Identity Female 04/08/2023 2:18 PM EDT Sexual Orientation Not on file Last Filed Vital Signs Vital Sign Reading Time Taken Comments Blood Pressure 132/83 10/18/2024 12:13 PM EST Pulse 82 10/18/2024 12:13 PM EST Temperature 36.3 ??C (97.4 ??F) 10/18/2024 12:[address] Respiratory Rate 20 10/18/2024 12:13 PM EST Oxygen Saturation 98% 10/18/2024 12:13 PM EST Inhaled Oxygen Concentration - - Weight 58.5 kg (129 lb) 10/12/2024 2:52 PM EST Height 162.6 cm (5' 4 ) 10/12/2024 2:52 PM EST Body Mass Index 22.14 10/12/2024 2:52 PM EST Plan of Treatment Upcoming Encounters Date Type Department Care Team (Late st Contact Info) Description 02/22/2025 2:45 PM EDT Office Visit [facility] [address] [place] [address] Surya Amos MD [address] [place] [address] [email or web address] Maintenance Due Date Last Done Comments Adult Td,Tdap Booster 1955 COLOGUARD 2000 FIT TEST 2000 FOBT 2000 SIGMOIDOSCOPY 2000 VIRTUAL COLONOSCOPY 2000 ZOSTER VACCINES (1 of 2) 2005 MAMMOGRAM 03/31/2023 03/31/2021, 03/02/2019 BLOOD PRESSURE 09/19/2024 03/20/2024 CREATININE LEVEL 09/27/2024 09/27/2023, 11/2022, 04/09/2023, Additional history exists LIPID PANEL 09/27/2024 09/27/2023, 01/08, 08/31/2021, Additional history exists POTASSIUM LEVEL 09/27/2024 09/27/2023, 07/0 11/2022, 04/09/2023, Additional history exists DEPRESSION SCREENING 03/20/2025 03/20/2024 COLONOSCOPY 04/09/2033 04/09/2023, 02/07, 02/12/2011 COLORECTAL CANCER SCREENING 04/09/2033 HEPATITIS C SCREENING Completed 02/22/2017 OSTEOPOROSIS SCREENING INITIAL (ONE-TIME) Completed 03/02/2019 PNEUMOCOCCAL VACCINES (50+ years) Completed 02/14/2023 RSV VACCINE Completed 09/20/2023 COVID-19 VACCINE Completed 07/01/2024, , 08/17/2022, Additional history exists SMOKING STATUS SCREENING (Once After 26 Yrs) Completed 10/18/2024 HEPATITIS A VACCINES Aged Out No long er eligible based on patient's age to complete this topic HIB VACCINES Aged Out No longer eligi ble based on patient's age to complete this topic MENINGOCOCCAL VACCINES (ACWY) Aged Out No longer eligible based on patient's age to complete this topic Medical Devices Not on file Procedures Procedure Name Priority Date/Time Associated Diagnosis Comments LIPID PANEL Routine 09/27/2023 1:30 PM EST Other hyperlipidemia Bilateral carotid artery stenosis BASIC METABOLIC PANEL Routine 09/27/2023 1:30 PM EST Essential hypertension ENDOSCOPY, COLON 04/09/2023 9:05 AM EDT BI MAMMOGRAM DIAGNOSTIC WITH TOMOSYNTHESIS WITH CAD (BILATERAL) Routine 03/31/2021 11:14 AM EDT Abnormal mammogram BD DXA AXIAL (SPINE) WITH HIP Routine 03/02/2019 2:41 PM EDT Menopausal state OUTSIDE HEPATITIS C VIRUS SCREENING Routine 02/22/2017 from Last 3 Months or Most Recently Relevant to Health Maintenance Results * (ABNORMAL) Lipid panel (09/27/2023 1:30 PM EST) HDL 49 mg/dL [facility] Comment: ? Interpretation <40 mg/dL: Low HDL cholesterol (major risk factor for CHD) Greater than or equal to 60 mg/dL: High HDL cholesterol ( negative risk factor for CHD) HDL - cholesterol is affected by a number of factors, e.g. smoking, excerise, hormones, sex and age. CHOLESTEROL 122 0 - 240 mg/dL [facility] TRIGLYCERIDES 135 30 - 160 mg/dL [facility] LDL 46(L) 50 - 129 mg/dL [facility] Comment: LDL levels in terms of risk for coronary heart disease: <100 mg/dL: Optimal 100-129 mg/dL: Near or above optimal 130-159 mg/dL: Borderline high 160-189 mg/dL: High >190 mg/dL: Very High CARDIAC RISK RATIO 2.5(L) 3.3 - 4.4 C [facility] Blood 09/27/2023 1:30 PM EST 09/27/2023 1:36 PM EST Surya Amos MD LAB BLOOD ORDERABLES Final Resul t Performing Organization Address [facility] Co de Phone Number [address] [address] * (ABNORMAL) Basic metabolic panel (09/27/2023 1:30 PM EST) SODIUM 141 133 - 146 mmol/L [facility] CHLORIDE 103 96 - 108 mmol/L [facility] POTASSIUM 4.5 3.3 - 5.1 mmol/L [facility] CO2 22 21 - 35 mmol/L [facility] BUN 14 6 - 19 mg/dL [facility] CREATININE 1.10 0.5 - 1.5 mg/dL [facility] GLUCOSE 92 70 - 99 mg/dL [facility] CALCIUM 10.2 8.4 - 10.3 mg/dL [facility] EGFR 55(L) >59 mL/min/1.7 3m2 [facility] Comment:Estimated glomerular filtration rate calculated using the CKD-EPI refit equation. ANION GAP 21(H) 10 - 20 mmol/L [facility] Blood 09/27/2023 1:30 PM EST 09/27/2023 1:36 PM EST Surya Amos MD LAB BLOOD ORDERABLES Final Resul t Performing Organization Address [facility] Co de Phone Number [address] [address] * ENDOSCOPY, COLON (04/09/2023 9:05 AM EDT) Narrative Transcriptions Chanel Dias MD - 04/09/2023 9:05 AM EDT [facility] Patient Name: Carol Ansari Attending MD:: CHANEL DIAS MD, Procedure Date: 04/09/2023 9:05 AM Date of : 1955 Age: 67 Admit Type: Inpatient Gender: Female Room: [facility] 04 Referring MD: Ping Blandon Exam Type: Colonoscopy Indications: Hematochezia Medications: Monitored Anesthesia Care Procedure: Informed consent was obtained from the patientafter discussion of the indications, limitations, alternatives, benefits, and risks of the procedure. Risks specifically discussed include but are not limited to medication reactions, missed lesions, bleeding, perforation, or the need for emergent surgery. Throughout the procedure, the patient's blood pressure, pulse, end-tidal CO2, and oxygensaturations were monitored continuously. The Olympus adult variable colonoscope [id number] #7 was introduced through the anus and advanced to the transverse colon. The colonoscopy was performed without difficulty. The patient tolerated the procedure well. The quality of the bowelpreparation was unprepped. Complications: No immediate complications. Estimated blood loss:None. Findings: Red blood was found in the entire colon. A segmental area of severely erythematous, eroded, hemorrhagic and ulcerated mucosa was found in the sigmoid colon. This was biopsied with a coldforceps for histology. ulcerative changes bookmarked bymilder patchy erythematous non-ulcerated changes. Someareas of linear ulceration were noted. These findings are typical of ischemic colitis. Multiple diverticula were found in the sigmoidcolon. A 6 mm adenoma polyp was found in the descending colon. The polyp was sessile. The polyp was removed with a cold snare. Resection and retrieval were complete. A localized area of moderately congested and erythematous mucosa was found in the distalrectum. Impression: - Blood in the entire examined colon. - Erythematous, eroded, hemorrhagic and ulcerated mucosa in the sigmoid colon. Biopsied. - Diverticulosis in the sigmoid colon. - One 6 mm polyp in the descending colon, removedwith a cold snare. Resected and retrieved. Findings likely reflect ischemic colitis of the sigmoid colon with small patchy involvement of the distal rectum, incidental adenomatous polyp and sigmoid diverticulosis noted. Recommendation: - Patient has a contact number available for emergencies. The signs and symptoms of potential delayed complications were discussed with thepatient. Return to normal activities tomorrow. Written discharge instructions were provided to thepatient. - Await pathology results. - Repeat colonoscopy in 5 years for surveillance. - Return patient to hospital [facility] for ongoing supportive care. Chanel Dias CHANEL DIAS MD 04/09/2023 9:43:29 AM This report has been signed electronically. Number of Addenda: 0 Note Initiated On: 04/09/2023 9:05 AM Procedure Code(s): --- Professional --- 78026, 52, Colonoscopy, flexible; with removal of tumor(s), polyp(s),or other lesion(s) by snare technique 52581, 59,52, Colonoscopy, flexible; with biopsy, single ormultiple --- Technical --- 60463, 52, Colonoscopy, flexible; with removal of tumor(s), polyp(s),or other lesion(s) by snare technique 26302, 59,52, Colonoscopy, flexible; with biopsy, single ormultiple CPT copyright 2021 [employer]. All rights reserved. The codes documented in this report are preliminary and upon night coordinator reviewmay be revised to meet current compliance requirements. Procedure Date: 04/09/2023 9:05:10 AM [address] [place] [address] Ping Blandon MD GI PROCEDURE ORDERABLES Fin al Result * BI MAMMOGRAM DIAGNOSTIC WITH TOMOSYNTHESIS WITH CAD (BILATERAL) (03/31/2021 11:14 AM EDT) Anatomical Region Laterality Modality Breast Left, Breast Right, Breast Bilateral Bila teral Mammography 03/31/2021 11:1 1 AM EDT Impressions 03/31/2021 11:25 AM EDT RIGHT BREAST: Negative, no evidence of malignancy. Normal interval follow-up is recommended in 12 months. LEFT BREAST: Focal asymmetry in the upper inner quadrant posterior depth is less prominent than the prior studies, and can now be considered benign finding. Benign, no evidence of malignancy. Normal interval follow-up is recommended in 12 months. Bi-RADS: BI-RADS CATEGORY: ??2 - Benign finding. DENSITY: ??The breast tissue is heterogeneously dense, which could obscure a lesion on mammography. RIGHT RECOMMENDATION DUE DATE: 12 Months Recommendation: Right Mammography Screening LEFT RECOMMENDATION DUE DATE: ??12 Months Recommendation: ??Left Mammography Screening Narrative 03/31/2021 11:25 AM EDT History: Left diagnostic mammogram in October 2019 for focal asymmetry in the upper inner quadrant at 6.5-7.0 cm from the nipple recommended a short-term follow-up. Patient returns to the service today. STUDY: Bilateral diagnostic mammography with tomosynthesis and CAD TECHNIQUE: Bilateral full-field digital diagnostic mammography is obtained and read in conjunction with computer-aided detection. ??Tomosynthesis as well as 2-D C view imaging were obtained. ?? COMPARISON: Comparison made to multiple prior, most recent left diagnostic mammogram on October 16, 2019, and most remote bilateral mammogram on August 15, 2008. BREAST COMPOSITION: The breast tissue is heterogeneously dense, which may obscure small masses. RIGHT BREAST: No significant masses, suspicious calcifications or other abnormalities are seen. LEFT BREAST: ??Previously seen focal asymmetry in the upper inner quadrant of the left breast is less prominent than prior images 2018 and 2019 (still vaguely seen at 6.5 cm from the nipple on the CC ). No significant masses, suspicious calcifications or other abnormalities are seen. Procedure Note Skyla Velasquez MD - 03/31/2021 History: Left diagnostic mammogram in October 2019 for focal asymmetry inthe upper inner quadrant at 6.5-7.0 cm from the nipple recommended ashort-term follow-up. Patient returns to the service today. STUDY: Bilateral diagnostic mammography with tomosynthesis and CAD TECHNIQUE: Bilateral full-field digital diagnostic mammography is obtainedand read in conjunction with computer-aided detection. Tomosynthesis aswell as 2-D C view imaging were obtained. COMPARISON: Comparison made to multiple prior, most recent left diagnosticmammogram on October 16, 2019, and most remote bilateral mammogram onAugust 15, 2008. BREAST COMPOSITION: The breast tissue is heterogeneously dense, which mayobscure small masses. RIGHT BREAST: No significant masses, suspicious calcifications or otherabnormalities are seen. LEFT BREAST: Previously seen focal asymmetry in the upper inner quadrantof the left breast is less prominent than prior images 2018 and 2019(still vaguely seen at 6.5 cm from the nipple on the CC ). Nosignificant masses, suspicious calcifications or other abnormalities areseen. IMPRESSION: RIGHT BREAST: Negative, no evidence of malignancy. Normal intervalfollow-up is recommended in 12 months. LEFT BREAST: Focal asymmetry in the upper inner quadrant posterior depthis less prominent than the prior studies, and can now be considered benignfinding. Benign, no evidence of malignancy. Normal interval follow-up isrecommended in 12 months. Bi-RADS: BI-RADS CATEGORY: 2 - Benign finding. DENSITY: The breast tissue is heterogeneously dense, which could obscurea lesion on mammography. RIGHT RECOMMENDATION DUE DATE: 12 Months Recommendation: Right Mammography Screening LEFT RECOMMENDATION DUE DATE: 12 Months Recommendation: Left Mammography Screening Alayna Jenkins [facility] MG EXAMS Final Result * BD DXA AXIAL (SPINE) WITH HIP (03/02/2019 2:41 PM EDT) Anatomical Region Laterality Modality Bone Density Bone Density 03/02/2019 3:06 PM EDT Impressions 03/02/2019 3:08 PM EDT Osteopenia evident in the lumbar spine. S/S: ??Estrogen deficiency, bone density screening, osteopenia ? POS - [id number] Narrative 03/02/2019 3:08 PM EDT This is a 63-year-old postmenopausal patient. Evaluation of the lumbar spine and both hips is obtained and appears appropriate. The lumbar spine from L1 through L4 discloses a total bone mineral density of 0.876 g/cm2 with a T-score of -1.6. ??This is in the osteopenia range. The right hip has a total bone mineral density of 0.859 g/cm2 with a T-score of -0.7 this is in the normal range. ?? The left hip has a total bone mineral density of 0.867 g/cm2 for a T-score of ??-0.6. ??This is in the normal range. Procedure Note Jl Nixon MD - 03/02/2019 This is a 63-year-old postmenopausal patient. Evaluation of the lumbar spine and both hips is obtained and appearsappropriate. The lumbar spine from L1 through L4 discloses a total bone mineral densityof 0.876 g/cm2 with a T-score of -1.6. This is in the osteopenia range. The right hip has a total bone mineral density of 0.859 g/cm2 with aT-score of - 0.7 this is in the normal range. The left hip has a total bone mineral density of 0.867 g/cm2 for a T-scoreof - 0.6. This is in the normal range. IMPRESSION: Osteopenia evident in the lumbar spine. S/S: Estrogen deficiency, bone density screening, osteopenia POS - [id number] Alayna Jenkins [facility] BD BONE DENSITY DE XA Final Result * Outside Hepatitis C Virus Screening (02/22/2017) Hepatitis C Screening - External Neg Historical Provider LAB BLOOD ORDERABLES Selena l Result from Last 3 Months or Most Recently Relevant to Health Maintenance Insurance UNITED PPO AARP MEDICARE REPLACEMENT MEDICARE PART A & [place] [address] [place] [address] MEDICARE REPLACEMENT MEDICARE PART A & B MEDICARE REPLACEMENT MEDICARE PART A & B MEDICARE REPLACEMENT MEDICARE PART A & B MEDICARE REPLACEMENT MEDICARE PART A & B MEDICARE REPLACEMENT MEDICARE PART A & B MEDICARE PART A & B [facility] MEDICARE REPLACEMENT MEDICARE PART A & B Member Subscriber Plan / Payer (Ef fective 2020-Present) Name:Carol Ansari Member ID:[id number] Relation to Subscriber:Self Name:Carol Ansari Subscriber ID:[id number] Payer ID:[id number] Group ID:Not on file Type:Medicare Address: [facility] [employer] [address] [place] [address] MEDICARE REPLACEMENT MEDICARE PART A & B Advance Directives For more information, please contact: [phone] (9AM - 5PM [facility], Tuesday-Tuesday) Documents on File Type Date Recorded Patient Negative Spotter Expl anation Healthcare Proxy 09/08/2021 3:09 PM * Full Code (Latest Code Status on File) Date Activated Date Inactivated Comments 04/08/2023 9:08 PM Question Answer Comments Code Status Confirmed With: Patient Code Status Communicated To: Inpatient Attending * Full Code Date Activated Date Inactivated Comments 08/30/2021 6:56 AM 04/08/2023 9:08 PM Question Answer Comments Code Status Confirmed With: Patient Code Status Communicated To: Inpatient Attending Care Teams Transport Corps Officer Relationship Specialty Start Date End Date Surya Amos MD [address] [place] [address] [email or web address] PCP - General Internal Medicine 04/08/23 Additional Source Comments The information contained in this document represents components of the legal health record. It is not the complete legal health record.[facility]
--- OUTSIDE RECORDS SUMMARY | 2025-02-18 14:19 | XMS_ITS | Encounter Summary ---
Author Organization [facility] Address [address] [place] [address] Phone Care Team Providers Care Cardiac Nurse Name Role Phone Leesa Garcia LABEL STITCHER Unavailable [phone] Usman Rodriguez MD Unavailable Wilbert Montes MD Unavailable Lisette Lerner COPY CENTER OPERATOR Unavailable [phone] Dinah Robles MD Unavailable Vineet Rosario MD Unavailable Facundo Real MD Unavailable [phone] Alysa Calvin LABEL STITCHER Unavailable [phone] Alayna Jenkins [facility] Primary Care Provider Jovanny Molina MD Unavailable [phone] Jovanny Molina MD Primary Care Provider [phone] Alayna Jenkins [facility] Primary Care Provider Jovanny Molina MD Primary Care Provider [phone] Jovanny Molina MD Primary Care Provider [phone] Alayna Jenkins [facility] Primary Care Provider Alayna Jenkins [facility] Primary Care Provider Surya Amos MD Primary Care Provider [phone] Encounter Details Date Type Department Care Team (Late st Contact Info) Description 03/07/2019 Ancillary Orders [facility] Internal Medicine [address] [place] [address] Alayna Jenkins CNP [address] [place], [place] [phone] [email or web address] Abnormal mammogram Social History Tobacco Use Types Packs/Day Years [...] Description 02/22/2025 2:45 PM EDT Office Visit [facility] Internal Medicine [address] [place] [address] Surya Amos MD [address] [place], [place] [phone] [email or web address] documented as of this encounter Results * BI US BREAST LIMITED (LEFT) (03/12/2019 2:44 PM EDT) Anatomical Region Laterality Modality Breast Left, Breast Bilateral Left Ul trasound 03/12/2019 2:38 PM EDT Narrative 03/12/2019 2:44 PM EDT Refer to the mammogram report. POS - [id number] Procedure Note Jayoln Sanchez MD - 03/12/2019 Refer to the mammogram report. POS - [id number] Alayna Jenkins [facility] IM[facility] US BREAST Final Result * BI MAMMOGRAM DIAGNOSTIC WITH TOMOSYNTHESIS WITH CAD (LEFT) (03/12/2019 2:17 PM EDT) Anatomical Region Laterality Modality Breast Left Left Mammography 03/12/2019 2:23 PM EDT Impressions 03/12/2019 2:40 PM EDT New left breast focal asymmetry since 2014. ??No findings suspicious for malignancy. ??Recommend six month mammographic follow-up. Findings relayed to the patient via the technologist. BI-RADS CATEGORY: 3 - Probably benign finding. Short interval follow up suggested. DENSITY: ??The breast tissue is heterogeneously dense, an appearance which lowers the sensitivity of mammography. LEFT RECOMMENDATION DATE: ??6 Months Short interval follow-up POS - [id number] Narrative 03/12/2019 2:40 PM EDT 63-year-old female who presents for a callback mammogram for a left breast asymmetry. ??Comparison made to previous mammograms. ??Interpretation made in conjunction with computer-aided detection and tomosynthesis. Left ML and spot compression CC and MLO views obtained. ??The left breast is heterogeneously dense, which may obscure small masses. Asymmetry again noted at approximately 11-12:00. ??No masslike features or distortion on the additional views. Left breast ultrasound was obtained. ??There is no sonographic abnormality. Procedure Note Jaylon Sanchez MD - 03/12/2019 63-year-old female who presents for a callback mammogram for a left breastasymmetry. Comparison made to previous mammograms. Interpretation madein conjunction with computer-aided detection and tomosynthesis. Left ML and spot compression CC and MLO views obtained. The left breastis heterogeneously dense, which may obscure small masses. Asymmetry againnoted at approximately 11-12:00. No masslike features or distortion onthe additional views. Left breast ultrasound was obtained. There is no sonographicabnormality. IMPRESSION: New left breast focal asymmetry since 2014. No findings suspicious formalignancy. Recommend six month mammographic follow-up. Findings relayedto the patient via the technologist. BI-RADS CATEGORY: 3 - Probably benign finding. Short interval follow upsuggested. DENSITY: The breast tissue is heterogeneously dense, an appearance whichlowers the sensitivity of mammography. LEFT RECOMMENDATION DATE: 6 Months Short interval follow-up POS - [id number] Alayna Jenkins [facility] MG EXAMS Final Result documented in this encounter Visit Diagnoses Diagnosis Abnormal mammogram Abnormal mammogram, unspecified Abnormal mammogram Abnormal mammogram, unspecified Abnormal mammogram Abnormal mammogram, unspecified documented in this encounter Additional Health Concerns Infection Onset Date Last Indicated Resolved Time CoV-Exposed Comment:Positive COVID-19 09/21/2021 09/21/2021 09/23/2021 5:4 0 PM EST COVID-19 09/21/2021 09/21/2021 10/12/2021 1:23 AM EST C. diff 04/09/2023 04/09/2023 05/09/2023 1:21 AM EDT documented as of this encounter Care Teams Cardiac Nurse Relationship Specialty Start Date End Date Alayna Jenkins CNP [address] [place] [address] PCP - General Internal Medicine 09/12/18 03/11/19 Jovanny Molina MD [address] [place] [address] PCP - General Internal Medicine 03/12/19 07/22/19 Alayna Jenkins CNP [address] [place] [address] PCP - General Internal Medicine 07/23/19 10/04/19 Jovanny Molina MD [address] [place] [address] [email or web address] PCP - General Internal Medicine 10/05/19 10/15/19 Jovanny Molina MD [address] [place] [address] [email or web address] PCP - General Internal Medicine 10/16/19 05/22/20 Alayna Jenkins CNP [address] [place] [address] [email or web address] PCP - General Internal Medicine 05/23/20 03/15/21 Alayna Jenkins CNP [address] [place] [address] [email or web address] PCP - General Internal Medicine 03/16/21 04/07/23 Surya Amos MD [address] [place] [address] [email or web address] PCP - General Internal Medicine 04/08/23 Leesa Garcia NP [address] [place] [address] [email or web address] Historical LMR Provider 07/31/17 1 Usman [email or web address] MD [address] [place] [address] [address], [address] [place] [address] Historical LMR Provider 07/31/17 07/22/19 Wilbert Montes MD [address] [place] [address] Historical LMR Provider 07/31/1707/22 Lisette Lerner FNP [address] [facility]. 204, [address] [place] [address] Historical LMR Provider 07/31/17 07/22/19 Dinah Robles MD [address] [facility]. [address], [address] [place] [address] Historical LMR Provider 07/31/17 9 Vineet Rosario MD [address] [facility], [address] [place] [address] Historical LMR Provider 07/31/17 9 Facundo Real MD [address] [place] [address] Historical LMR Provider 07/31/1707/22 Alysa Calvin LABEL STITCHER [address] [place] [address] 6 [place] [address] Historical LMR Provider 07/31/17 07/22/19 Jovanny Molina MD [address] [place] [address] [email or web address] Insurance Assigned Provider 02/10/19 02/13/20 documented as of this encounter Additional Source Comments The information contained in this document represents components of the legal health record. It is not the complete legal health record.[facility]
--- OUTSIDE RECORDS SUMMARY | 2025-02-18 14:19 | XMS_ITS | Encounter Summary ---
Author Organization [facility] Address [address] [place] [address] Phone Care Team Providers Care Grounds Maintenance Worker Name Role Phone AlixAlayna lovell Denia SUJATA Primary Care Provider Surya Amos MD Primary Care Provider [phone] Encounter Details Date Type Department Care Team (Late st Contact Info) Description 09/01/2021 Procedure Pass [address] [address] Social History Tobacco Use Types Packs/Day Years [...] Description 02/22/2025 2:45 PM EDT Office Visit [facility] Internal Medicine [address] [place] [address] [phone] Surya Amos MD [address] [place] [address] documented as of this encounter Visit Diagnoses Not on filedocumented in this encounter Additional Health Concerns Infection Onset Date Last Indicated Resolved Time CoV-Exposed Comment:Positive COVID-19 09/21/2021 09/21/2021 09/23/2021 5:4 0 PM EST COVID-19 09/21/2021 09/21/2021 10/12/2021 1:23 AM EST C. diff 04/09/2023 04/09/2023 05/09/2023 1:21 AM EDT documented as of this encounter Care Teams Grounds Maintenance Worker Relationship Specialty Start Date End Date Alayna Jenkins CNP [address] [place] [address] PCP - General Internal Medicine 03/16/21 04/07/23 Surya Amos MD [address] [place] [address] PCP - General Internal Medicine 04/08/23 documented as of this encounter Additional Source Comments The information contained in this document represents components of the legal health record. It is not the complete legal health record.[facility]
--- OUTSIDE RECORDS SUMMARY | 2025-02-18 14:19 | XMS_ITS | Encounter Summary ---
Author Organization [facility] Address [address] [place] [address] Phone Care Team Providers Care Preschool Disability Teacher Name Role Phone Surya Amos MD Primary Care Provider [phone] Encounter Details Date Type Department Care Team (Late st Contact Info) Description 04/08/2023 Procedure Pass [facility], Ct Scan - [address] [address] Social History Tobacco Use Types Packs/Day Years Used Date Smoking Tobacco: Never Smokeless Tobacco: Never Alcohol Use Standard Drinks/Week Comments Yes 2 (1 standard drink = 0.6 oz pur e alcohol) 1 martini couple times a week Education Answer Date Recorded Are you interested in more education? Not on minda e 02/04/2023 Are you concerned about learning? Not on file 02/04/2023 No 02/04/2023 No 02/04/2023 Digital Access Answer Date Recorded No 03/07/2023 No 03/07/2023 Reliable internet access at home? Not on file 03/07/2023 Device with a working camera? Not on file Comments No Sex and Gender Information Value Date Recorded Sex Assigned at Female 04/08/2023 2:18 PM EDT Legal Sex Female 9:55 PM EDT Gender Identity Female 04/08/2023 2:18 PM EDT Sexual Orientation Not on file documented as of this encounter Functional Status * Calculated C-SSRS Risk Score (Lifetime/Recent) Answer Date of Assessment Author No Risk Indicated 04/08/2023 5:30 PM EDT Agnes Moreno RN * [place] Suicide Severity Rating Scale (Screener/Recent Self-Report) Question Answer Date of Assessment Author 1. Wish to be (Past 1 Month) No 04/08/2023 5:30 PM EDT Maria Esther Beaulieu RN 2. Non-Specific Active Suicidal Thoughts (Past 1 Month) No 04/08/2023 5:30 PM EDT Maria Esther Beaulieu RN 6. Suicidal Behavior (Lifetime) No 04/08/2023 5:30 PM EDT Maria Esther Beaulieu RN documented as of this encounter Plan of Treatment Upcoming Encounters Date Type Department Care Team (Late st Contact Info) Description 02/22/2025 2:45 PM EDT Office Visit [facility] Internal Medicine [address] [place] [address] Surya Amos MD [address] [place] [address] [email or web address] documented as of this encounter Visit Diagnoses Not on filedocumented in this encounter Additional Health Concerns Infection Onset Date Last Indicated Resolved Time C. diff 04/09/2023 04/09/2023 05/09/2023 1:21 AM EDT Assessment Noted Time PHQ-2 Depression Total Score: 0 02/15/20 3:08 PM EDT documented as of this encounter Care Teams Preschool Disability Teacher Relationship Specialty Start Date End Date Surya Amos MD [address] [place] [address] PCP - General Internal Medicine 04/08/23 documented as of this encounter Additional Source Comments The information contained in this document represents components of the legal health record. It is not the complete legal health record.[facility]
--- OUTSIDE RECORDS SUMMARY | 2025-02-18 14:19 | XMS_ITS | Encounter Summary ---
Author Organization [facility] Address [address] [facility] [address] [place] [address] Phone Care Team Providers Care Data Operations Director Name Role Phone Surya Amos MD Primary Care Provider [phone] Encounter Details Date Type Department Care Team (Late st Contact Info) Description 04/03/2024 Procedure Pass [facility], Ct Scan - [address] [address] Social History Tobacco Use Types Packs/Day Years Used Date Smoking Tobacco: Never Smokeless Tobacco: Never Alcohol Use Standard Drinks/Week Comments Not Currently 2 (1 standard drink = 0.6 oz pure alcohol) 1 martini couple times a week Child or Family Care Answer Date Record [...] your housing situation today? I have linda sing 03/20/2024 How many times have you move [...] uch as food, clothing, or medical care? No 03/20/2024 In the past 12 months have y ou been in a relationship with a person who hurts, threatens, or tries to control you? No 03/20/2024 Are you denied basic needs s uch as food, clothing, or medical care? No 03/20/2024 In the past 12 months have y ou been in a relationship with a person who hurts, threatens, or tries to control you? No 03/20/2024 Comments No Sex and Gender Information Value Date Recorded Sex Assigned at Female 04/08/2023 2:18 PM EDT Legal Sex Female 9:55 PM EDT Gender Identity Female 04/08/2023 2:18 PM EDT Sexual Orientation Not on file documented as of this encounter Plan of Treatment Upcoming Encounters Date Type Department Care Team (Late st Contact Info) Description 02/22/2025 2:45 PM EDT Office Visit [facility] Internal Medicine [address] [place] [address] Surya Amos MD [address] [place] [address] documented as of this encounter Visit Diagnoses Not on filedocumented in this encounter Additional Health Concerns Assessment Noted Time PHQ-2 Depression Total Score: 0 03/20/20 24 10:52 AM EDT documented as of this encounter Care Teams Data Operations Director Relationship Specialty Start Date End Date Surya Amos MD [address] [place] [address] [email or web address] PCP - General Internal Medicine 04/08/23 documented as of this encounter Additional Source Comments The information contained in this document represents components of the legal health record. It is not the complete legal health record.[facility]
--- OUTSIDE RECORDS SUMMARY | 2025-02-18 14:19 | XMS_ITS | Encounter Summary ---
Author Organization [facility] Address [address] [place] [address] Phone Care Team Providers Care Graphics Manager Name Role Phone Alayna Jenkins CNP Primary Care Provider Alayna Jenkins CNP Primary Care Provider Suyra Amos MD Primary Care Provider [phone] Encounter Details Date Type Department Care Team (Late st Contact Info) Description 03/13/2021 Procedure Pass [address] [address] Social History Tobacco Use Types Packs/Day Years [...] Description 02/22/2025 2:45 PM EDT Office Visit [facility] Internal Medicine [address] [place], [place] [phone] Surya Amos MD [address] [place] [address] documented as of this encounter Visit Diagnoses Not on filedocumented in this encounter Additional Health Concerns Infection Onset Date Last Indicated Resolved Time CoV-Exposed Comment:Positive COVID-19 09/21/2021 09/21/2021 09/23/2021 5:4 0 PM EST COVID-19 09/21/2021 09/21/2021 10/12/2021 1:23 AM EST C. diff 04/09/2023 04/09/2023 05/09/2023 1:21 AM EDT documented as of this encounter Care Teams Graphics Manager Relationship Specialty Start Date End Date Alayna Jenkins CNP [address] [place] [address] PCP - General Internal Medicine 05/23/20 03/15/21 Alayna Jenkins CNP [address] [place] [address] PCP - General Internal Medicine 03/16/21 04/07/23 Surya Amos MD [address] [place] [address] PCP - General Internal Medicine 04/08/23 documented as of this encounter Additional Source Comments The information contained in this document represents components of the legal health record. It is not the complete legal health record.[facility]
--- OUTSIDE RECORDS SUMMARY | 2025-02-18 14:19 | XMS_ITS | Encounter Summary ---
Author Organization [facility] Address [address] [place] [address] Phone Care Team Providers Care Mate Fourth Name Role Phone Alayna Jenkins SUJATA Primary Care Provider Surya Amos MD Primary Care Provider [phone] Encounter Details Date Type Department Care Team (Late Contact Info) Description 08/30/2021 Procedure Pass [facility] [address] [place], [place] [phone] Social History Tobacco Use Types Packs/Day Years [...] Description 02/22/2025 2:45 PM EDT Office Visit [facility] Internal Medicine [address] [place], [place] [phone] Surya Amos MD [address] [place], [place] [phone] [email or web address] documented as of this encounter Visit Diagnoses Not on filedocumented in this encounter Additional Health Concerns Infection Onset Date Last Indicated Resolved Time CoV-Exposed Comment:Positive COVID-19 09/21/2021 09/21/2021 09/23/2021 5:4 0 PM EST COVID-19 09/21/2021 09/21/2021 10/12/2021 1:23 AM EST C. diff 04/09/2023 04/09/2023 05/09/2023 1:21 AM EDT documented as of this encounter Care Teams Mate Fourth Relationship Specialty Start Date End Date Alayna Jenkins CNP [address] [place] [address] PCP - General Internal Medicine 03/16/21 04/07/23 Surya Amos MD [address] [place] [address] PCP - General Internal Medicine 04/08/23 documented as of this encounter Additional Source Comments The information contained in this document represents components of the legal health record. It is not the complete legal health record.[facility]
--- OUTSIDE RECORDS SUMMARY | 2025-02-18 14:19 | XMS_ITS | Encounter Summary ---
Author Organization [facility] Address [address] [place] [address] Phone Care Team Providers Care Sourcing Assistant Name Role Phone Alayna Jenkins CNP Primary Care Provider Surya Amos MD Primary Care Provider [phone] Encounter Details Date Type Department Care Team (Late st Contact Info) Description 08/29/2021 Procedure Pass [facility], Ct Scan - [address] [address] Social History Tobacco Use Types Packs/Day Years [...] Date of Assessment Author No Risk Indicated 08/29/2021 9:19 PM Ann Reyes CNP * [place] Suicide Severity Rating Scale (Screener/Recent Self-Report) Question Answer Date of Assessment Author 1. Wish to be (Past 1 Month) No 08/29/2021 9:19 PM Ann Reyes CNP 2. Non-Specific Active Suicidal Thoughts (Past 1 Month) No 08/29/2021 9:19 PM Ann Reyes CNP 6. Suicidal Behavior (Lifetime) No 08/29/2021 9:19 PM EST Oleg Ann Nito bruner CNP documented as of this encounter Plan of Treatment Upcoming Encounters Date Type Department Care Team (Late st Contact Info) Description 02/22/2025 2:45 PM EDT Office Visit [facility] Internal Medicine [address] [place], [place] [phone] Surya Amos MD [address] [place], [place] [phone] [email or web address] documented as of this encounter Visit Diagnoses Not on filedocumented in this encounter Additional Health Concerns Infection Onset Date Last Indicated Resolved Time CoV-Exposed Comment:Positive COVID-19 09/21/2021 09/21/2021 09/23/2021 5:4 0 PM EST COVID-19 09/21/2021 09/21/2021 10/12/2021 1:23 AM EST C. diff 04/09/2023 04/09/2023 05/09/2023 1:21 AM EDT documented as of this encounter Care Teams Sourcing Assistant Relationship Specialty Start Date End Date Alayna Jenkins CNP [address] [place] [address] PCP - General Internal Medicine 03/16/21 04/07/23 Surya Amos MD [address] [place] [address] PCP - General Internal Medicine 04/08/23 documented as of this encounter Additional Source Comments The information contained in this document represents components of the legal health record. It is not the complete legal health record.[facility]
--- OUTSIDE RECORDS SUMMARY | 2025-02-18 14:19 | XMS_ITS | Encounter Summary ---
Author Organization [facility] Address [address] [facility] [address] [place] [address] Phone Care Team Providers Care Payroll Master Name Role Phone Surya Amos MD Primary Care Provider [phone] Encounter Details Date Type Department Care Team (Late st Contact Info) Description 10/18/2024 Procedure Pass [facility] Endoscopy Admitting Dept Virtual Department [address] [place] [address] Social History Tobacco Use Types Packs/Day Years [...] Description 02/22/2025 2:45 PM EDT Office Visit [facility] Internal Medicine [address] [place] [address] Surya Amos MD [address] [place] [address] [email or web address] documented as of this encounter Visit Diagnoses Not on filedocumented in this encounter Additional Health Concerns Assessment Noted Time PHQ-2 Depression Total Score: 0 03/20/20 24 10:52 AM EDT documented as of this encounter Care Teams Payroll Master Relationship Specialty Start Date End Date Surya Amos MD [address] [place] [address] [email or web address] PCP - General Internal Medicine 04/08/23 documented as of this encounter Additional Source Comments The information contained in this document represents components of the legal health record. It is not the complete legal health record.[facility]
--- OUTSIDE RECORDS SUMMARY | 2025-02-18 14:19 | XMS_ITS | Encounter Summary ---
Author Organization [facility] Address [address] [place] [address] Phone Care Team Providers Care Semiconductor Manufacturing Technician Name Role Phone AlixAlayna lovell Denia SUJATA Primary Care Provider Surya Amos MD Primary Care Provider [phone] Encounter Details Date Type Department Care Team (Late st Contact Info) Description 08/30/2021 Procedure Pass [facility], Ct Scan - [address] [address] Social History Tobacco Use Types Packs/Day Years [...] Description 02/22/2025 2:45 PM EDT Office Visit [facility] Internal Medicine [address] [place], [place] [phone] Surya Amos MD [address] [place] [address] documented as of this encounter Visit Diagnoses Not on filedocumented in this encounter Additional Health Concerns Infection Onset Date Last Indicated Resolved Time CoV-Exposed Comment:Positive COVID-19 09/21/2021 09/21/2021 09/23/2021 5:4 0 PM EST COVID-19 09/21/2021 09/21/2021 10/12/2021 1:23 AM EST C. diff 04/09/2023 04/09/2023 05/09/2023 1:21 AM EDT documented as of this encounter Care Teams Semiconductor Manufacturing Technician Relationship Specialty Start Date End Date Alanya Jenkins CNP [address] [place] [address] PCP - General Internal Medicine 03/16/21 04/07/23 Surya Amos MD [address] [place] [address] PCP - General Internal Medicine 04/08/23 documented as of this encounter Additional Source Comments The information contained in this document represents components of the legal health record. It is not the complete legal health record.[facility]
--- OUTSIDE RECORDS SUMMARY | 2025-02-18 14:19 | XMS_ITS | Encounter Summary ---
Author Organization [facility] Address [address] [place] [address] Phone Care Team Providers Care Ethanol Maintenance Mechanic Name Role Phone Surya Amos MD Primary Care Provider Reason for Referral * MRI/CAT Scan - Closed Specialty Diagnoses / Procedures Referred By Calin armendariz Referred To Contact Radiology Diagnoses Gastroesophageal reflux disease, unspecified whether esophagitis present Nausea Epigastric abdominal pain Procedures CT Abdomen Only (No Pelvis) Amanda Acevedo PA [address] [place] [address] Phone: tel: fax: [email or web address] Referral ID Status Reason Start Date Expiration Date Visits Re quested Visits Authorized [id number] Closed 04/03/2024 04/03/2025 1 1 Encounter Details Date Type Department Care Team (Latest Contact Info) Description 04/03/2024 Transcribe Orders Virtual Department [address] [place] [address] Amanda Acevedo PA [address] [place] [address] [email or web address] Gastroesophageal reflux disease, unspecified whether esophagitis present (Primary Dx); Nausea; Epigastric abdominal pain Social History Tobacco Use Types Packs/Day Years [...] Description 02/22/2025 2:45 PM EDT Office Visit [facility] Internal Medicine [address] [place] [address] Surya Amos MD [address] [place] [address] [email or web address] documented as of this encounter Results * CT ABDOMEN WITHOUT CONTRAST (05/11/2024 9:20 AM EDT) Anatomical Region Laterality Modality Abdomen, Abdominal Vasculature C omputed Tomography 05/15/2024 3:23 PM EDT Impressions 05/15/2024 3:32 PM EDT 1. ??Question mild diffuse wall thickening of the stomach. 2. ??Mild diverticulosis of the colon. No evidence of diverticulitis. 3. Stable 11 mm low-attenuation lesion in the posterior upper pole of the right kidney probably representing a cyst. Narrative 05/15/2024 3:[address] ABDOMEN WITHOUT CONTRAST Referring clinician's provided indication for this examination in Epic: Outside Radiology Order; gerd TECHNIQUE: Multidetector-row CT of the abdomen was performed without intravenous contrast using tailored dose modulation techniques. Images were reconstructed in the axial, coronal, and sagittal planes. COMPARISON: Previous CT of the abdomen and pelvis March 2023 ABSENCE OF INTRAVENOUS CONTRAST DECREASES SENSITIVITY FOR DETECTION OF FOCAL LESIONS AND VASCULAR PATHOLOGY. FINDINGS: Lower Chest: Normal. No consolidation or pleural effusions. Liver: Normal. No focal lesions. Biliary: Normal. No biliary ductal dilatation. Spleen: Normal. No splenomegaly or focal lesions. Pancreas: Normal. No masses or ductal dilatation. Adrenal Glands: Normal. No nodules. Kidneys/Ureters: Small low-attenuation lesion in the posterior upper pole of the right kidney measuring 11 mm. This is similar to prior exam and probably represents a small cyst. No solid masses, stones, or hydronephrosis. Bowel: Mild diverticulosis of the colon. No evidence of diverticulitis. Small duodenal diverticulum adjacent to the head of the pancreas. Small and large bowel otherwise normal. No distention or wall thickening. Question mild diffuse gastric wall thickening. Peritoneum/Retroperitoneum: Normal. No masses, pneumoperitoneum, or fluid. Lymph Nodes: Normal. No lymphadenopathy. Vessels: Atherosclerotic disease. No abdominal aortic aneurysm. Bones/Soft Tissues: Degenerative disc disease of the lower lumbar spine. No destructive osseous lesions. Procedure Note Hortencia Prieto MD - 05/15/2024 CT ABDOMEN WITHOUT CONTRAST Referring clinician's provided indication for this examination in Epic:Outside Radiology Order; gerd TECHNIQUE: Multidetector-row CT of the abdomen was performed withoutintravenous contrast using tailored dose modulation techniques. Imageswere reconstructed in the axial, coronal, and sagittal planes. COMPARISON: Previous CT of the abdomen and pelvis March 2023 ABSENCE OF INTRAVENOUS CONTRAST DECREASES SENSITIVITY FOR DETECTION OFFOCAL LESIONS AND VASCULAR PATHOLOGY. FINDINGS: Lower Chest: Normal. No consolidation or pleural effusions. Liver: Normal. No focal lesions. Biliary: Normal. No biliary ductal dilatation. Spleen: Normal. No splenomegaly or focal lesions. Pancreas: Normal. No masses or ductal dilatation. Adrenal Glands: Normal. No nodules. Kidneys/Ureters: Small low-attenuation lesion in the posterior upper poleof the right kidney measuring 11 mm. This is similar to prior exam andprobably represents a small cyst. No solid masses, stones, orhydronephrosis. Bowel: Mild diverticulosis of the colon. No evidence of diverticulitis.Small duodenal diverticulum adjacent to the head of the pancreas. Smalland large bowel otherwise normal. No distention or wall thickening.Question mild diffuse gastric wall thickening. Peritoneum/Retroperitoneum: Normal. No masses, pneumoperitoneum, orfluid. Lymph Nodes: Normal. No lymphadenopathy. Vessels: Atherosclerotic disease. No abdominal aortic aneurysm. Bones/Soft Tissues: Degenerative disc disease of the lower lumbar spine.No destructive osseous lesions. IMPRESSION: 1. Question mild diffuse wall thickening of the stomach. 2. Mild diverticulosis of the colon. No evidence of diverticulitis. 3. Stable 11 mm low-attenuation lesion in the posterior upper pole of theright kidney probably representing a cyst. Amanda BILLS IMG CT XSPECIALTY ORDERABLES Fi nal Result documented in this encounter Visit Diagnoses Diagnosis Gastroesophageal reflux disease, unspecified whether esophagitis present- Primary Nausea Nausea alone Epigastric abdominal pain Abdominal pain, epigastric Gastroesophageal reflux disease, unspecified whether esophagitis present Nausea Nausea alone Epigastric abdominal pain Abdominal pain, epigastric documented in this encounter Additional Health Concerns Assessment Noted Time PHQ-2 Depression Total Score: 0 03/20/20 24 10:52 AM EDT documented as of this encounter Care Teams Ethanol Maintenance Mechanic Relationship Specialty Start Date End Date Surya Amos MD [address] [place] [address] [email or web address] PCP - General Internal Medicine 04/08/23 documented as of this encounter Additional Source Comments The information contained in this document represents components of the legal health record. It is not the complete legal health record.[facility]
--- OUTSIDE RECORDS SUMMARY | 2025-02-18 14:19 | XMS_ITS | Encounter Summary ---
Author Organization [facility] Address [address] [place] [address] Phone Care Team Providers Care Director Of Reimbursement Name Role Phone Surya Amos MD Primary Care Provider [phone] Encounter Details Date Type Department Care Team (Late st Contact Info) Description 04/09/2023 Procedure Pass [facility] Endoscopy Admitting Dept Virtual Department [address] [place] [address] Social History Tobacco Use Types Packs/Day Years [...] Description 02/22/2025 2:45 PM EDT Office Visit [facility] Internal Medicine [address] [place] [address] Surya Amos MD [address] [place] [address] [email or web address] documented as of this encounter Visit Diagnoses Not on filedocumented in this encounter Additional Health Concerns Infection Onset Date Last Indicated Resolved Time C. diff 04/09/2023 04/09/2023 05/09/2023 1:21 AM EDT Assessment Noted Time PHQ-2 Depression Total Score: 0 02/15/20 3:08 PM EDT documented as of this encounter Care Teams Director Of Reimbursement Relationship Specialty Start Date End Date Surya Amos MD [address] [place] [address] [email or web address] PCP - General Internal Medicine 04/08/23 documented as of this encounter Additional Source Comments The information contained in this document represents components of the legal health record. It is not the complete legal health record.[facility]
--- OUTSIDE RECORDS SUMMARY | 2025-02-18 14:19 | XMS_ITS | Encounter Summary ---
Author Organization [facility] Address [address] [place] [address] Phone Care Team Providers Care Gas Fitter Helper Name Role Phone AlixAlayna lovell Denia SUJATA Primary Care Provider Surya Amos MD Primary Care Provider [phone] Encounter Details Date Type Department Care Team (Late st Contact Info) Description 01/21/2022 Procedure Pass [address] [address] Social History Tobacco Use Types Packs/Day Years [...] 02/22/2025 2:45 PM EDT Office Visit [facility] Internal Medicine [address] [place] [phone] Surya Amos MD [address] [place] [address] documented as of this encounter Visit Diagnoses Not on filedocumented in this encounter Additional Health Concerns Infection Onset Date Last Indicated Resolved Time C. diff 04/09/2023 04/09/2023 05/09/2023 1:21 AM EDT Assessment Noted Time PHQ-2 Depression Total Score: 0 01/22/20 9:53 AM EDT documented as of this encounter Care Teams Gas Fitter Helper Relationship Specialty Start Date End Date Alayna Jenkins CNP [address] [place] [address] [email or web address] PCP - General Internal Medicine 03/16/21 04/07/23 Surya Amos MD [address] [place] [address] [email or web address] PCP - General Internal Medicine 04/08/23 documented as of this encounter Additional Source Comments The information contained in this document represents components of the legal health record. It is not the complete legal health record.[facility]
== END 2025-02-18 14:04 | disposition home or self-care (01) ==
LOC: HO.HMGCX 14:03
PROVIDERS: PCP Internal Medicine; Visit Provider Surgery Vascular Surgery
DX: I65.23 Occlusion and stenosis of bilateral carotid arteries (principal)
CPT/HCPCS: 93880

== ENCOUNTER → 2025-02-18 14:07 | Outpatient (BNV) | payer MEDICARE, SELFPAY | PROVIDERS: PCP Internal Medicine; Visit Provider Radiology Diagnostic Radiology | DX: I49.9 Cardiac arrhythmia, unspecified (principal) | CPT/HCPCS: 93880 ==